=== PATIENT | male | born 1955 | race Caucasian/White ===

== ENCOUNTER 2016-09-12 12:25 | Emergency (ER) | payer MEDICARE, MEDICAID ==
[2016-09-12] MEDS ORDERED: oxyCODONE/Acetamin 5/325 MG* TAB PO ONE ×2 (16:03→19:27)
--- NOTE | 2016-09-12 16:26 | ED ---
Skin Complaint - HPI Summary HPI Summary: Patient presents to ED with CC of pain and potential abscess at back of head x 1 week. He has been using ibuprofen, ice, heating pads and marijuana for relief. Denies [place]. He is unsure if the area has been draining and patient has never had this before. Patient is unable flex and extend at the neck and rates a 10/10 pain upon movement of the head. Denies IV drug use or recent abx use. Patient is otherwise healthy. He states several days ago the raised lump was more "moveable" and larger, today is much smaller but the pain continues. - History of Current Complaint Chief Complaint: EDRashSkinAbscess Time Seen by Provider: 09/12/16 15:41 Stated Complaint: PAINFUL BUMP ON BACK OF HEAD Hx Obtained From: Patient Onset/Duration: Started Days Ago Skin Exposure Onset/Duration: Hours Ago Timing: Constant Onset Severity: Severe Current Severity: Severe Pain Intensity: 10 Pain Scale Used: 0-10 Numeric Skin Location: Other: - head Character: Swelling, Pain, Redness, Raised, Painful Aggravating Symptom(s): Touch Alleviating Symptom(s): Heat, Cold, Cold Compresses Associated Signs & Symptoms: Drainage, Tenderness - Allergy/Home Medications Allergies/Adverse Reactions: Allergies Allergy/AdvReac Type Severity Reaction Status Date / Time Penicillins Allergy Rash Verified 09/12/16 12:38 PMH/Surg Hx/FS Hx/Imm Hx Previously Healthy: Yes Cardiovascular History: Denies: Other Cardiovascular Problems/Disorders Respiratory History: Reports: Hx Asthma Infectious Disease History: No Infectious Disease History: Denies: Traveled Outside the [place] in Last 30 Days - Social History Occupation: Employed Full-time Lives: With Family Alcohol Use: None Hx Substance Use: Yes Substance Use Type: Reports: Marijuana Hx Tobacco Use: Yes Smoking Status (MU): Former Smoker Review of Systems Constitutional: Negative Eyes: Negative Respiratory: Negative Positive: no symptoms reported, see HPI Positive: Arthralgia - neck pain on flexion and extension Positive: Other - pain in posterior scalp with raised lesion Neurological: Negative Psychological: Normal All Other Systems Reviewed And Are Negative: Yes Physical Exam Triage Information Reviewed: Yes Vital Signs On Initial Exam: Initial Vitals Temp Pulse Resp BP Pulse Ox 98.0 F 81 18 156/76 98 09/12/16 12:38 09/12/16 12:38 09/12/16 12:38 09/12/16 12:38 09/12/16 12:38 Vital Signs Reviewed: Yes Appearance: Positive: Well-Appearing, Well-Nourished, Pain Distress Skin: Positive: Warm, Other - pain on palpation over posterior scalp. raised 2cm raised bump which is not fluctuant. no surrounding erythma. center with small scab indicating prior drainage. Eyes: Positive: EOMI, LEOPOLDO, Conjunctiva Clear Neck: Positive: Supple, No Lymphadenopathy Respiratory/Lung Sounds: Positive: Clear to Auscultation, Breath Sounds Present Cardiovascular: Positive: Normal Musculoskeletal: Positive: Normal - pain with flexion and extension of the neck d/t abscess on posterior scalp Neurological: Positive: Sensory/Motor Intact, Alert, Oriented to Person Place, Time, Speech Normal Psychiatric: Positive: Normal AVPU Assessment: Alert Diagnostics - Vital Signs Vital Signs Temp Pulse Resp BP Pulse Ox 09/12/16 13:56 98.2 F 82 18 136/75 100 09/12/16 12:38 98.0 F 81 18 156/76 98 - Laboratory Result Diagrams: 09/12/16 18:00 09/12/16 18:00 Lab Statement: Any lab studies that have been ordered have been reviewed, and results considered in the medical decision making process. - CT No standard instances CT Interpretation: Positive (See Comments) CT Interpretation Completed By: Radiologist - IMPRESSION: THERE APPEARS TO BE AN AREA OF INDURATED FAT IN THE DORSAL SOFT TISSUES JUST SUPERFICIAL TO THE OCCIPITAL BONE LIKELY REPRESENTING CELLULITIS. NO EVIDENCE OF DRAINABLE FLUID COLLECTION IS NOTED. MULTIPLE SUPRACLAVICULAR AND LEVEL 2 LYMPH NODES ARE NOTED. THE LARGEST IN THE LEFT SUPRACLAVICULAR SPACE MEASURING UP TO 10 MM. RIGHT SUPRACLAVICULAR SPACE LYMPH NODE MEASURES UP TO 9 MM. Course/Dx - Course Course Of Treatment: 10mg percoset given for pain so as able to reassess. Non- fluctuant slightly raised mass over posterior scalp present for 7 days with worsening pain. Center with small scab indicating previous drainage. pain 10/ 10. 10mg oxycodone given for pain. Unable to flex or extend neck d/t pain. Patient allergic to pencillins. Patient given morphine for pain on second assessment. CTA neck ordered showing indurated fat and cellulitis with no drainable fluid collection. Patient made aware of results and agrees to follow up with Dr. Alas this week. White count at 13. - Differential Diagnoses - Skin Complaint Differential Diagnoses: Cellulitis, Other - folliculitis, abscess, enlarged lymphnodes, indurated fat - Diagnoses Provider Diagnoses: Cellulitis of scalp Discharge - Discharge Plan Condition: Stable Disposition: HOME Prescriptions: Clindamycin Cap(NF) [Cleocin 300 mg Cap(NF)] 300 mg PO Q6H #28 cap MDD 4 Hydrocodone/Acetamin 10/325(NF [[place] 10/325 (NF)] 1 tab PO Q6H #12 tab MDD 4 Patient Education Materials: Cellulitis (ED) Referrals: Marnie Alas MD [Primary Care Provider] - Additional Instructions: Follow up with Dr. Alas on Tuesday regarding cellulitic infection and high blood glucose level. Warm compresses to the area 2-3 times daily. Warm soaks with soap and water at least once daily for 15 minutes. Take antibiotics as prescribed. Take all antibiotics even if you are feeling better. Ibuprofen 600mg three times daily with meals for pain and inflammation x 5 days. If pain is not well controlled on ibuprofen, you may take the pain medication up to 4 times daily. Dispense any unused pain medication at your pharmacy. Images - Images Head: 1 - 2cm non-fluctuant raised lump with scab evidence of prior drainage. no surrounding erythema.
[2016-09-12 18:07] LABS: Hematocrit 43 % (42-52); Mean Corpuscular HGB Conc 33 g/dl (31-36); Mean Corpuscular Hemoglobin 29 pg (27-31); Mean Corpuscular Volume 88 fL (80-94); Mean Platelet Volume 9 um3 (7.4-10.4); Red Cell Distribution Width 15 % (10.5-15); White Blood Count 13.3 10^3/ul (3.5-10.8)
[2016-09-12 18:22] LABS: Albumin 3.7 g/dL (3.2-5.2); BUN/Creatinine Ratio 16.7 (8-20); Calcium 8.9 mg/dL (8.6-10.3); Globulin 3.7 g/dL (2-4); Potassium 3.6 mmol/L (3.5-5.0); Total Bilirubin 0.2 mg/dL (0.2-1.0); Total Protein 7.4 g/dL (6.4-8.9)
[2016-09-12] MEDS ORDERED: Iodixanol* (CONTRAST) 320 MG/ML 100 ML SDV IV ONE (18:32)
[2016-09-12] MEDS ORDERED: Morphine INJ* 2 MG/ML 1 ML CARPUJECT IV ONE (19:28)
--- NOTE | 2016-09-12 19:36 | RAD ---
Indication: 4 x 4 centimeter mass over posterior scalp. Contrast: Administered 99.9 ml of VISAPAQUE 320 mgi/ml CT of the soft tissues of the neck was performed after IV contrast administration. Coronal and sagittal reconstructed images were obtained. Superficial to the occipital bone adjacent to the posterior fossa there is erythema and infiltration of fat in the subcutaneous soft tissues. This measures approximately 5 x 4 cm. No drainable fluid collections are noted. This likely represents an area of cellulitis. The paraspinal muscles are otherwise unremarkable. No evidence of bony erosion is noted. No intracranial extension is noted. The parotid glands are unremarkable. Submandibular glands are unremarkable. There are scattered lymph nodes in the supraclavicular space. They measure approximately 11 mm on the left and 10 mm on the right. Level 2 lymph nodes are noted measuring 6 mm on the left. No prevertebral soft tissue swelling is noted. Mucosal thickening of the left maxillary sinus is noted. IMPRESSION: THERE APPEARS TO BE AN AREA OF INDURATED FAT IN THE DORSAL SOFT TISSUES JUST SUPERFICIAL TO THE OCCIPITAL BONE LIKELY REPRESENTING CELLULITIS. NO EVIDENCE OF DRAINABLE FLUID COLLECTION IS NOTED. MULTIPLE SUPRACLAVICULAR AND LEVEL 2 LYMPH NODES ARE NOTED. THE LARGEST IN THE LEFT SUPRACLAVICULAR SPACE MEASURING UP TO 10 MM. RIGHT SUPRACLAVICULAR SPACE LYMPH NODE MEASURES UP TO 9 MM.
[2016-09-12] MEDS ORDERED: Clindamycin CAP* 150 MG PO ONE ×2 (19:45→19:46)
[2016-09-12] MEDS ORDERED: HYDROcodone/ACETAMIN 5-325 MG* 1 TAB PO ONE (19:47)
[2016-09-12 20:26] VITALS: BP 164/94
== END 2016-09-12 20:21 | disposition home or self-care (01) ==
LOC: ED 12:25
DX: L03.811 Cellulitis of head [any part, except face] (principal); M54.2 Cervicalgia; Z87.891 Personal history of nicotine dependence
CPT/HCPCS: 36415; 70491; 80053; 85025; 96374; 99282; A9270-GY; J2270; Q9967

== ENCOUNTER 2017-10-07 20:01 | Inpatient (IN) | payer MEDICARE, MEDICAID ==
[~2017-10-07 20:01] MED LIST: EPINEPHRINE 1 MG/ML 1 ML VIAL ONE; KETAMINE HCL* 50 MG/ML 10 ML VIAL ONE; Succinylcholine* 20 MG/ML 10 ML VIAL ONE
[2017-10-07] MEDS ORDERED: VECURONIUM BROMIDE 10 MG INJ ONE (20:09)
[2017-10-07] MEDS ORDERED: VECURONIUM BROMIDE 10 MG INJ IV ONE (20:10)
[2017-10-07] MEDS ORDERED: EPINEPHRINE 1 MG/ML 1 ML VIAL ONE (20:11)
[2017-10-07] MEDS ORDERED: KETAMINE HCL* 50 MG/ML 10 ML VIAL IV ONE (20:14)
[2017-10-07] MEDS ORDERED: EPINEPHrine AMP 1 MG/ML SUBCUT ONE (20:14)
[2017-10-07] MEDS ORDERED: Succinylcholine* 20 MG/ML 10 ML VIAL IV ONE (20:14)
[2017-10-07] MEDS ORDERED: methylPREDNISolone 125 MG* 2 ML VIAL IV ONE (20:20)
[2017-10-07] MEDS ORDERED: Magnesium Sulfate 2 GM IV* 2 GM/50 ML BAG IVPB ONE (20:20)
[2017-10-07] MEDS ORDERED: Albuterol/Ipratropium NEB.SOL* Albuterol 2.5 MG/Ipratropium 0.5 MG 3 ML INH ONE (20:20)
[2017-10-07] MEDS ORDERED: NS 0.9% 1000 ML* 1,000 ML IV ONE (20:20)
[2017-10-07 20:31] LABS: Hematocrit 37 % (42-52); Hemoglobin 11.9 g/dl (14.0-18.0); Mean Corpuscular HGB Conc 32 g/dl (31-36); Mean Corpuscular Hemoglobin 30 pg (27-31); Mean Corpuscular Volume 94 fL (80-94); Mean Platelet Volume 8.2 um3 (7.4-10.4); Platelet Count 283 10^3/ul (150-450); Red Blood Count 3.92 10^6/ul (4.0-5.4); Red Cell Distribution Width 14 % (10.5-15); White Blood Count 12.8 10^3/ul (3.5-10.8)
--- NOTE | 2017-10-07 20:37 | RAD ---
INDICATION: Intubation. Respiratory distress COMPARISON: August 19, 2014 TECHNIQUE: An AP portable view obtained at 2009 hours is submitted. FINDINGS: Bones/Soft Tissues: There are no acute bony findings. There is nasogastric tube in the stomach there is an endotracheal tube at the level of the thoracic inlet at the T1 level. The endotracheal tube is approximately 10 cm above the ebenezer Cardiomediastinal: The cardiomediastinal silhouette is normal. Lungs: There are no infiltrates. There is mild hyperinflation. There are no focal infiltrates Pleura: There are no pleural effusions. Other: None IMPRESSION: THE ENDOTRACHEAL TUBE IS AT THE LEVEL OF THE THORACIC INLET AND CAN BE ADVANCED. LUNGS CLEAR.
[2017-10-07 20:43] LABS: EGFR Non-African American 52.6 (>60)
[2017-10-07] MEDS ORDERED: Vecuronium Bromide* 10 MG in NS 0.9% 100 ML* 100 ML IV SCH (21:00)
[2017-10-07] MEDS ORDERED: Propofol* 500 MG/50 ML BTL IV SCH (21:00)
[2017-10-07 21:28] LABS: Monocytes % 8 % (0-7)
[2017-10-07] MEDS ORDERED: Dextrose 50% Syringe 50 ML* 25 GM/50 ML SYRINGE IV PUSH PRN (21:40)
[2017-10-07] MEDS ORDERED: cefTRIAXone(*) 1 GM in NS 0.9% 50 ML* 50 ML IVPB SCH (21:45)
[2017-10-07 21:53] LABS: Urine Appearance Cloudy; Urine Blood Negative (Negative); Urine Color Yellow; Urine Ketones Negative (Negative); Urine Protein 3+(>=500 mg/dL) (Negative); Urine Specific Gravity 1.017 (1.010-1.030); Urine Urobilinogen Negative (Negative)
--- NOTE | 2017-10-07 22:04 | ED ---
Michelle Salamanca Julia, scribed for Travis Peña MD on 10/07/17 at 2052 . Respiratory - HPI Summary HPI Summary: This patient is a 62 year old M BIBA to [facility] due to severe respiratory distress. EMS report a hx of asthma and DM. They are unaware of any other medical history. EMS states pt was unresponsive on arrival. Pt is unable to provide a hx. Pt is level 5 caveat. - History of Current Complaint Chief Complaint: EDRespiratoryDistress Stated Complaint: RESP DISTRESS Time Seen by Provider: 10/07/17 20:12 Hx Obtained From: EMS Hx From Patient Unobtainable Due To: Extremis Pain Intensity: 0 Related History: Similar Episode/Dx as - asthma - Allergy/Home Medications Allergies/Adverse Reactions: Allergies Allergy/AdvReac Type Severity Reaction Status Date / Time Penicillins Allergy Rash Verified 10/07/17 20:14 Home Medications: Home Medications Albuterol HFA INHALER* [Ventolin HFA Inhaler*] 2 puff PO Q4H PRN 10/07/17 [ History Confirmed 10/07/17] Fluticasone-Salmeterol 250-50* [Advair Diskus 250-50*] 1 puff INH BID 10/07/17 [ History Confirmed 10/07/17] Glimepiride (NF) 2 mg PO QAM 10/07/17 [History Confirmed 10/07/17] Sitaglip/Metform XR50/1000(NR) [Janumet Xr (NR)] 1 tab PO BID 10/07/17 [ History Confirmed 10/07/17] PMH/Surg Hx/FS Hx/Imm Hx Endocrine/Hematology History: Reports: Hx Diabetes Cardiovascular History: Denies: Hx Hypertension, Other Cardiovascular Problems/Disorders Respiratory History: Reports: Hx Asthma Infectious Disease History: No Infectious Disease History: Denies: Traveled Outside the [place] in Last 30 Days - Family History Known Family History: Positive: Unknown - Pt is unable to provide hx. Level 5 caveat - Social History Alcohol Use: None Hx Substance Use: Yes Substance Use Type: Reports: Marijuana Hx Tobacco Use: Yes Smoking Status (MU): Former Smoker Review of Systems All Other Systems Reviewed And Are Negative: No - Comments Additional Review of Systems Comments: ROS is limited. Pt is level 5 caveat. Physical Exam - Summary Physical Exam Summary: Appearance: sever respiratory distress Skin: warm, reflects adequate perfusion, diaphoretic Head/face: normal Eyes: EOMI, LEOPOLDO ENT: normal Neck: supple, non-tender Respiratory: diminished breath sounds with wheezes Cardiovascular: RRR, pulses symmetrical Abdomen:, soft Bowel Sounds: present Musculoskeletal: normal, no lower extremity edema Neuro: AMS Triage Information Reviewed: Yes Vital Signs On Initial Exam: Initial Vitals Temp Pulse Resp BP Pulse Ox 97.6 F 127 24 142/86 96 10/07/17 20:32 10/07/17 20:32 10/07/17 20:32 10/07/17 20:32 10/07/17 20:32 Vital Signs Reviewed: Yes Procedures - Procedure Summary Procedure Summary: Pt was intubated with a 3 glide scope with 8-0 ET tube, 20cm at the lip. Sa02 was over 95% throughout entire intubation process. Bilateral breath sounds present. Pt had good color. Orogastric tube was additionally placed. Diagnostics - Vital Signs Vital Signs Temp Pulse Resp BP Pulse Ox 10/07/17 20:36 124 10 97 10/07/17 20:32 97.6 F 127 24 142/86 96 - Laboratory Lab Results: Lab Results 10/07/17 10/07/17 10/07/17 Range/Units 20:05 20:05 20:05 WBC 12.8 H (3.5-10.8) 10^3/ul RBC 3.92 L (4.0-5.4) 10^6/ul Hgb 11.9 L (14.0-18.0) g/dl Hct 37 L (42-52) % MCV 94 (80-94) fL MCH 30 (27-31) pg MCHC 32 (31-36) g/dl RDW 14 (10.5-15) % Plt Count 283 (150-450) 10^3/ul MPV 8.2 (7.4-10.4) um3 Neut % (Auto) Pending Lymph % (Auto) Pending [place] % (Auto) Pending Eos % (Auto) Pending Baso % (Auto) Pending Absolute Neuts (auto) Pending Absolute Lymphs (auto) Pending Absolute Monos (auto) Pending Absolute Eos (auto) Pending Absolute Basos (auto) Pending Absolute Nucleated RBC Pending Nucleated RBC % Pending Patient Temperature ABG pH (7.35-7.45) ABG pH (Temp Correct) ABG pCO2 (35-45) mmHg ABG pCO2 (Temp Corrct ABG pO2 (80-100) mmHg ABG pO2 (Temp Correct ABG HCO3 (19-31) mmol/L ABG O2 Saturation (95-98) % ABG Base Excess (-2.0-2.0) Respiration Rate O2 Delivery Device Ventilator Type Vent Mode FiO2 Inspiratory Time PEEP Pressure Support Pressure Control EPAP IPAP BiPAP Sodium 139 (139-145) mmol/L Potassium 4.2 (3.5-5.0) mmol/L Chloride 103 (101-111) mmol/L Carbon Dioxide 19 L (22-32) mmol/L Anion Gap 17 H (2-11) mmol/L BUN 16 (6-24) mg/dL Creatinine 1.38 H (0.67-1.17) mg/dL Est GFR ( Amer) 67.6 (>60) Est GFR (Non-Af Amer) 52.6 (>60) BUN/Creatinine Ratio 11.6 (8-20) Glucose 220 H (70-100) mg/dL Lactic Acid 8.5 H* (0.5-2.0) mmol/L Calcium 9.4 (8.6-10.3) mg/dL Total Bilirubin 0.40 (0.2-1.0) mg/dL AST 70 H (13-39) U/L ALT 59 H (7-52) U/L Alkaline Phosphatase 62 (34-104) U/L Troponin I 0.03 (<0.04) ng/mL C-Reactive Protein 11.62 H (< 5.00) mg/L Total Protein 7.9 (6.4-8.9) g/dL Albumin 4.3 (3.2-5.2) g/dL Globulin 3.6 (2-4) g/dL Albumin/Globulin Ratio 1.2 (1-3) /12/19 Range/Units 20:20 WBC (3.5-10.8) 10^3/ul RBC (4.0-5.4) 10^6/ul Hgb (14.0-18.0) g/dl Hct (42-52) % MCV (80-94) fL MCH (27-31) pg MCHC (31-36) g/dl RDW (10.5-15) % Plt Count (150-450) 10^3/ul MPV (7.4-10.4) um3 Neut % (Auto) Lymph % (Auto) [place] % (Auto) Eos % (Auto) Baso % (Auto) Absolute Neuts (auto) Absolute Lymphs (auto) Absolute Monos (auto) Absolute Eos (auto) Absolute Basos (auto) Absolute Nucleated RBC Nucleated RBC % Patient Temperature Not Reportable ABG pH 7.06 L* (7.35-7.45) ABG pH (Temp Correct) Not Reportable ABG pCO2 72 H* (35-45) mmHg ABG pCO2 (Temp Corrct Not Reportable ABG pO2 374 H (80-100) mmHg ABG pO2 (Temp Correct Not Reportable ABG HCO3 16.2 L (19-31) mmol/L ABG O2 Saturation 100.6 H (95-98) % ABG Base Excess -11.2 L (-2.0-2.0) Respiration Rate 10 O2 Delivery Device vent Ventilator Type Not Reportable Vent Mode pcv FiO2 100 Inspiratory Time .85 PEEP 8 Pressure Support Not Reportable Pressure Control 15 EPAP Not Reportable IPAP Not Reportable BiPAP Not Reportable Sodium (139-145) mmol/L Potassium (3.5-5.0) mmol/L Chloride (101-111) mmol/L Carbon Dioxide (22-32) mmol/L Anion Gap (2-11) mmol/L BUN (6-24) mg/dL Creatinine (0.67-1.17) mg/dL Est GFR ( Amer) (>60) Est GFR (Non-Af Amer) (>60) BUN/Creatinine Ratio (8-20) Glucose (70-100) mg/dL Lactic Acid (0.5-2.0) mmol/L Calcium (8.6-10.3) mg/dL Total Bilirubin (0.2-1.0) mg/dL AST (13-39) U/L ALT (7-52) U/L Alkaline Phosphatase (34-104) U/L Troponin I (<0.04) ng/mL C-Reactive Protein (< 5.00) mg/L Total Protein (6.4-8.9) g/dL Albumin (3.2-5.2) g/dL Globulin (2-4) g/dL Albumin/Globulin Ratio (1-3) Result Diagrams: 10/07/17 20:05 10/07/17 20:05 Lab Statement: Any lab studies that have been ordered have been reviewed, and results considered in the medical decision making process. - Radiology CXR Radiology Interpretation Completed By: Radiologist - THE ENDOTRACHEAL TUBE IS AT THE LEVEL OF THE THORACIC INLET AND CAN BE ADVANCED. LUNGS CLEAR. ED Physician has reviewed this report. - EKG 2041 Cardiac Rate: Tachycardia - at 124 BPM EKG Rhythm: Sinus Tachycardia ST Segment: Normal Ectopy: PVCs EKG Interpretation: R axis, poor r wave progression Re-Evaluation - Re-Evaluation First Eval Change: Improved - improving tidal volumes on vent with Peak pressures of 27. Disposition - Course Course Of Treatment: Pt presents critically ill with apparent resp failure from severe asthma. Moving min air, gasping "help me." SubCut epi on arrival, prepped for intubation on arrival as he is pushing mask off face. Induced with ketamine for bronchodilatory effects. Intubated on 1st pass easily. Significantly acidotic with Co2 retention. mult nebs and IV magnesium given. Fluid hydrated. Vecuronium after intubation and vec drip started to help with synchronization of the ventilator. ICU physician consulted immediately after intubation. He will discuss further vent managment with the hospitalist team. Sedated with propofol and a 2nd bolus of ketamine 100mg. To ICU. BPs up, sats well with tx. Mechanical decompression of chest several times to assist with hyperinflation. ETT was advanced after seeing high on the CXR. - Differential Dx - Cardiopulmonary Differential Diagnoses - Cardiopulmonary: Acute Coronary, Airway Obstruction, CHF, Exacerbation Of COPD, Pneumothorax - Diagnoses Provider Diagnoses: Respiratory failure, Asthma exacerbation, Hyperglycemia - Critical Care Time Critical Care Time: 30-74 min - Critical care time is exclusive of separately billable procedures Discharge - Sign-Out/Discharge Documenting (check all that apply): Discharge - Discharge Plan Condition: Critical Disposition: ADMITTED TO [facility] - Billing Disposition and Condition Condition: CRITICAL Disposition: [facility] Consult Consult: At 17:56, Dr. Manjarrez recommends to admit by hospitalist. At 20:48, Dr. Harrison, hospitalist, agrees to admit pt The documentation as recorded by the scribe, Roetzer,Jocelyne accurately reflects the service I personally performed and the decisions made by me, Travis Peña MD.
[2017-10-07] MEDS ORDERED: NS 0.9% 1000 ML* 1,000 ML IV SCH (22:15)
[2017-10-07] MEDS ORDERED: Propofol* 100 ML ONE (22:30)
[2017-10-07] MEDS: Albuterol 2.5 MG/3 ML NEB.SOL* (0.083%) INH PRN (22:57)
[2017-10-07] MEDS: methylPREDNISolone 125 MG* 2 ML VIAL IV SCH (23:18)
[2017-10-07] MEDS: cefTRIAXone 1000 MG SYRINGE IVPB Q24H (in NaCl) IVPB SCH ×2 (23:24)
[2017-10-07] MEDS: Azithromycin IV(*) 250 MG in NS 0.9% 250 ML* 250 ML IVPB SCH (23:44)
[2017-10-07] MEDS: Insulin LISPRO* 1 UNITS UNIT SUBCUT SCH (23:49)
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
[2017-10-08] MEDS: NS 0.9% 1000 ML* 2,000 ML IV ONE ×2 (00:49→01:50)
[2017-10-08] MEDS ORDERED: Metoprolol Tartrate IV* 1 MG/ML 5 ML VIAL IV PRN (00:53)
[2017-10-08] MEDS ORDERED: Propofol* 100 ML ONE (01:16)
[2017-10-08] MEDS: Propofol* 100 ML IV SCH ×8 (01:26→23:10)
[2017-10-08] MEDS: Aspirin 81 mg CHEW TAB* 81 MG TAB.CHEW G TUBE SCH ×2 (01:51→09:11)
[2017-10-08] MEDS: Vecuronium Bromide* 10 MG in NS 0.9% 100 ML* 100 ML IV SCH ×7 (01:52→13:09)
[2017-10-08] MEDS: Albuterol 2.5 MG/3 ML NEB.SOL* (0.083%) INH SCH ×12 (03:40→23:21)
[2017-10-08] MEDS: Insulin LISPRO* 1 UNITS UNIT SUBCUT SCH ×5 (04:18→20:35)
[2017-10-08 05:04] LABS: ABS Basophils 0 10^3/ul (0-0.2); ABS Eosinophils 0 10^3/ul (0-0.6); ABS Monocytes 0.4 10^3/ul (0-0.8); ABS Nucleated RBC 0 10^3/ul; Eosinophil % 0.1 % (0-6); Hematocrit 41 % (42-52); Hemoglobin 13.1 g/dl (14.0-18.0); Lymphocyte % 8.2 % (25-47); Mean Corpuscular HGB Conc 32 g/dl (31-36); Mean Corpuscular Hemoglobin 30 pg (27-31); Mean Corpuscular Volume 95 fL (80-94); Mean Platelet Volume 8.3 um3 (7.4-10.4); Nucleated Red Blood Cells % 0; Platelet Count 249 10^3/ul (150-450); Red Blood Count 4.31 10^6/ul (4.0-5.4); Red Cell Distribution Width 15 % (10.5-15); White Blood Count 12.4 10^3/ul (3.5-10.8)
[2017-10-08 05:14] LABS: EGFR Non-African American 43.1 (>60)
[2017-10-08] MEDS ORDERED: NS 0.9% 500 ML* 500 ML IV ONE (05:36)
[2017-10-08] MEDS ORDERED: NS 0.9% 1000 ML* 1,000 ML IV SCH (05:37)
[2017-10-08] MEDS: methylPREDNISolone 125 MG* 2 ML VIAL IV SCH ×3 (09:12→21:43)
[2017-10-08] MEDS: fentaNYL* 50 MCG/ML 2 ML VIAL (100 MCG VIAL) IV SLOW PU PRN ×2 (10:13→16:48)
[2017-10-08] MEDS ORDERED: Famotidine SUSP* 40 MG/5 ML ORAL.SYRIN G TUBE ONE (11:27)
--- NOTE | 2017-10-08 11:42 | PN ---
Progress Note - Progress Note Date of Service: 10/08/17 Note: CRITICAL CARE MEDICINE Date: 10/08/17 Time: 1055 SUBJECTIVE: Patient seen and examined. GF of 9 years at bedside. 4 kids not emancipated. She states he was unwell last few days but even before was having cohen. using neb at home but not much help last 2 days. occasional etoh, tlc no tob. PHYSICAL EXAM: Vital Signs: Reviewed. Neurologic: sedated RASS -3. HEENT: pupils equal. Sclera anicteric. Trachea midline. ett high. advanced to 24cm lip. Cardiovascular: distant S1 S2 Respiratory: barrel chest with poor air movement and tight end exp wheeze diffusely but not loud Abdomen: Soft, obese, nt. Extremities: Warm. Access: piv LABS: Reviewed. IMAGING: Reviewed. MEDICATIONS: Reviewed. ASSESSMENT: 62 M Status asthmaticus Acute hypoxic and hypercarbic resp failure Uncontrolled DM Demand ischemia with troponin leak MIRIAN Mild transaminitis from hypoperfusion Lactic acidosis from resp mechanics and global hypoperfusion PLAN: Neurologic: keep sedated with prop. use fent prn. Cardiovascular: perfusing. bp low end at times but tolerable. needs IVF to equilibrate post Ebb phase. can dc later today. troponin sec to demand, but with risk factors. check echo. pe seems less likely but with echo can check duplexs as well. Respiratory: actually not looking too bad on vent. adjusted to cpap and tolerating with large vol and desired peep, pressure adjusted. needs further nebs as still not even releasing through extensive wheezes I think. on iv steroids. nebs q1 for a bit today and then can back down again. as long as avoiding autopeep and airtrapping, we can maintain on cpap with larger volumes to avoid paralytics. f/u abg later today to see gas exchange. Gastrointestinal: ogt. start tf. sup. Renal/Metabolic: LA cleared. fluids off later. allow renal recovery post hypoperfusion. Infectious Disease: doubt bacterial infection, but can keep abx while cx pending. if neg, can just use azithro for copd adjunction. Hematology: hb ok. hsq. Endocrine: on steroids. glu uncontrolled with this. ssi and add lantus today. Musculoskeletal: bedrest. skin precautions. Psych/Social: gf updated. Supportive and preventative care as ordered. SUP: h2 VTE prophylaxis: heparin Siddiqui catheter given critical illness, monitoring needs for accurate assessment of MIRIAN and KDIGO criteria for critically ill patients and to avoid potential harms of urinary retention, skin breakdown/ulcers. Disposition: ICU Code Status: Full Critical Care Time: 45min Erica Manjarrez DO
[2017-10-08] MEDS: Chlorhexidine MOUTHWASH 0.12%* 15 ML UDC TOPICAL SCH ×3 (11:56→20:17)
[2017-10-08] MEDS ORDERED: Insulin GLARGINE(*) 1 UNITS UNIT SUBCUT ONE (12:00)
[2017-10-08] MEDS: cefTRIAXone 1000 MG SYRINGE IVPB Q24H (in NaCl) IVPB SCH ×2 (21:43)
[2017-10-08] MEDS: Azithromycin IV(*) 250 MG in NS 0.9% 250 ML* 250 ML IVPB SCH (22:15)
[2017-10-09] MEDS: Chlorhexidine MOUTHWASH 0.12%* 15 ML UDC TOPICAL SCH ×6 (00:13→19:56)
[2017-10-09] MEDS: fentaNYL* 50 MCG/ML 2 ML VIAL (100 MCG VIAL) IV SLOW PU PRN ×5 (00:13→19:56)
[2017-10-09] MEDS: Insulin LISPRO* 1 UNITS UNIT SUBCUT SCH ×6 (00:21→20:25)
[2017-10-09] MEDS: Propofol* 100 ML IV SCH ×9 (02:10→23:22)
[2017-10-09] MEDS: Albuterol 2.5 MG/3 ML NEB.SOL* (0.083%) INH SCH ×6 (03:49→23:10)
[2017-10-09] MEDS: methylPREDNISolone 125 MG* 2 ML VIAL IV SCH ×3 (05:45→22:05)
[2017-10-09 05:52] LABS: ABS Basophils 0 10^3/ul (0-0.2); ABS Eosinophils 0 10^3/ul (0-0.6); ABS Monocytes 1.2 10^3/ul (0-0.8); ABS Neutrophils 16.5 10^3/ul (1.5-7.7); ABS Nucleated RBC 0 10^3/ul; Eosinophil % 0.1 % (0-6); Hematocrit 38 % (42-52); Hemoglobin 12.2 g/dl (14.0-18.0); Lymphocyte % 5.3 % (25-47); Mean Corpuscular HGB Conc 33 g/dl (31-36); Mean Corpuscular Hemoglobin 30 pg (27-31); Mean Corpuscular Volume 92 fL (80-94); Mean Platelet Volume 8.9 um3 (7.4-10.4); Nucleated Red Blood Cells % 0; Platelet Count 248 10^3/ul (150-450); Red Blood Count 4.08 10^6/ul (4.0-5.4); Red Cell Distribution Width 15 % (10.5-15); White Blood Count 18.7 10^3/ul (3.5-10.8)
[2017-10-09 06:15] LABS: EGFR Non-African American 54.8 (>60)
[2017-10-09] MEDS: Aspirin 81 mg CHEW TAB* 81 MG TAB.CHEW G TUBE SCH (08:40)
[2017-10-09] MEDS ORDERED: Furosemide IV* 10 MG/ML VIAL (40 MG) IV SLOW PU ONE (10:48)
--- NOTE | 2017-10-09 10:59 | ECHO ---
Patient: KARINE TOVAR Rec#: [id number] : 1955 Date: 10/09/2017 Age: 62y Height: 175.3 cm / 69.0 in Weight: 93.4 kg / 205.9 lbs Sex: M BSA: 2.1 Room#: ICU 3 Admit Date#: 10/07/2017 Type: Inpatient Referring: Mikal Harrison MD Reading: Oscar Montez MD Basketball Scout: Brenda Malik RN RDCS Transthoracic Echocardiogram Indication: OK, respiratory distress BP: 103/63 HR: 82 Rhythm: NSR Findings History: Asthma, DM, former smoker. The patient is on mechanical ventilaton during the exam. Technical Comments: The study is technically limited due to patient body habitus. The study is technically limited due to the patient's smoking history. The study is technically limited due to patient being intubated and on a ventilator.Completed at 1000. Left Ventricle: The left ventricular chamber size is normal. Global left ventricular wall motion and contractility are within normal limits. There is normal left ventricular systolic function. The estimated ejection fraction is 60-65%. The assessment of diastolic function is non-diagnostic. Left Atrium: The left atrial chamber size is normal. Right Ventricle: The right ventricular chamber size and systolic function are within normal limits. Right Atrium: The right atrial cavity size is normal. Aortic Valve: The aortic valve structure is not well visualized. The aortic valve is trileaflet. The aortic valve leaflets are mildly thickened. There is no evidence of aortic regurgitation. There is no evidence of aortic stenosis. Mitral Valve: Mild mitral annular calcification present. The mitral valve leaflets are mildly thickened. There is a trace of mitral regurgitation. Tricuspid Valve: The tricuspid valve leaflets are normal. There is trace tricuspid regurgitation. Unable to estimate the right ventricular systolic pressure. There is no tricuspid stenosis. Pulmonic Valve: The pulmonic valve structure is not well visualized. There is no evidence of pulmonic regurgitation. There is no pulmonic stenosis. Pericardium: There is no significant pericardial effusion. A pericardial fat pad is visualized. Aorta: The ascending aorta is not well visualized. The aortic arch is not well visualized. There is no dilation of the aortic root. Pulmonary Artery: The main pulmonary artery is not well visualized. Venous: Unable to accurately comment on the size collapsibility of the IVC as the patient in known to be on mechanical ventilation. Conclusions There is normal left ventricular systolic function. The estimated left ventricular ejection fraction is 60-65%. Global left ventricular wall motion and contractility are within normal limits. Normal right heart size and function. Normal cardiac chamber sizes. Functionally benign heart valves. There is no prior echocardiogram available to compare with at this time. Measurements Name Value Normal Range RVDdMajor (2D) 3.1 cm (2.2 - 4.4) RAd ISD 4CH 4.2 cm (3.4 - 4.9) RA (A4C)W 3.5 cm (2.9 - 4.6) IVSd (2D) 1.2 cm (0.6 - 1) LVPWd (2D) 1 cm (0.6 - 1) LVIDd (2D) 4.3 cm (3.6 - 5.4) LVIDs (2D) 3.2 cm - LV FS (2D) 25 % (25 - 45) Aortic Annulus 2.4 cm (1.4 - 2.6) Ao root diameter (2D) 3.1 cm (2.1 - 3.5) LA dimension (AP) 2D 3.4 cm (2.3 - 3.8) LAd ISD 4CH 4.2 cm (2.9 - 5.3) LA ISD 4CH W 3.2 cm (2.5 - 4.5) Name Value Normal Range LA ESV SP 4CH (A/L) 28 ml - LA ESV SP 2CH (A/L) 37 ml - LA ESV BP (A/L) 36 ml - LA ESV BP (A/L) index 17.2 ml/m2 - LA ESV SP 4CH (MOD) 27 ml - LA ESV SP 2CH (MOD) 35 ml - Name Value Normal Range MV E-wave Vmax 0.76 m/sec - MV deceleration time 170 msec - MV A-wave Vmax 0.69 m/sec - MV E:A ratio 1.1 ratio - LV septal e' Vmax 0.1 m/sec - LV lateral e' Vmax 0.09 m/sec - LV E:e' septal ratio 7.6 ratio - LV E:e' lateral ratio 8.4 ratio - Name Value Normal Range AV Vmax 1.2 m/sec - AV VTI 22.5 cm - AV peak gradient 6.1 mmHg - AV mean gradient 3.6 mmHg - LVOT Vmax 1.2 m/sec - LVOT VTI 20.6 cm - LVOT peak gradient 5.5 mmHg - LVOT mean gradient 2.9 mmHg - Name Value Normal Range PV Vmax 0.73 m/sec -
--- NOTE | 2017-10-09 11:09 | PN ---
Progress Note - Progress Note Date of Service: 10/09/17 Note: CRITICAL CARE MEDICINE Date: 10/09/17 Time: 1000 SUBJECTIVE: Patient seen and examined. GF present. PHYSICAL EXAM: Vital Signs: Reviewed. Neurologic: sedated RASS -2. HEENT: pupils equal. Sclera anicteric. Trachea midline. Cardiovascular: distant S1 S2 Respiratory: barrel chest with better air movement. distant rhonchi. Abdomen: Soft, obese, nt. Extremities: Warm. Access: piv LABS: Reviewed. IMAGING: Reviewed. MEDICATIONS: Reviewed. ASSESSMENT: 62 M Status asthmaticus Acute hypoxic and hypercarbic resp failure Uncontrolled DM Demand ischemia with troponin leak MIRIAN Mild transaminitis from hypoperfusion - leading to elevated ammonia (transiently ) Lactic acidosis from resp mechanics and global hypoperfusion PLAN: Neurologic: sedation holiday for nursing today and able to follow commands. prop at lower level. Rass -2 ok. use fent prn. Cardiovascular: perfusing. bp stable. would like to see him mobilize fluid. lasix today. Respiratory: looking better but mv high and still prefers high cpap otherwise high neg insp pressures, but that's at least good for mechanics but worries me for his exacerbation. May get close to liberation to HFO@ today, but given overall washout still from initial presentation may error on conservation and slow down and more proper liberation trial tomorrow post 48h steroids. Gastrointestinal: ogt. continued tf. sup. can use lactulose to aid amm clearance but should fall on its own too. Renal/Metabolic: bun up post steroids and acidosis was slow clearing but better. Infectious Disease: no signs bacterial infection; change to azithro alone. Hematology: hb ok. hsq. Endocrine: steroids continued . inc lantus today. ssi Musculoskeletal: bedrest. skin precautions. Psych/Social: gf updated. Supportive and preventative care as ordered. SUP: h2 VTE prophylaxis: heparin Siddiqui catheter given critical illness, monitoring needs for accurate assessment of MIRIAN and KDIGO criteria for critically ill patients and to avoid potential harms of urinary retention, skin breakdown/ulcers. Disposition: ICU Code Status: Full Critical Care Time: 35min Erica Manjarrez DO
[2017-10-09] MEDS ORDERED: Insulin GLARGINE(*) 1 UNITS UNIT SUBCUT ONE (12:00)
--- NOTE | 2017-10-09 21:33 | RAD ---
HISTORY: Prolonged immobility TECHNIQUE: Multiple transverse and longitudinal ultrasound images were obtained of the veins of the bilateral lower extremities using grayscale, color Doppler, and spectral Doppler imaging with and without compression and with augmentation. FINDINGS: VEINS: The common femoral vein, deep femoral vein, femoral vein and popliteal vein are compressible throughout their course, with normal flow on color Doppler imaging and normal response to augmentation on spectral Doppler imaging. SOFT TISSUES: Grossly normal. No large popliteal fossa cyst was identified. IMPRESSION: No sonographic evidence of deep vein thrombosis.
[2017-10-09] MEDS: Azithromycin IV(*) 250 MG in NS 0.9% 250 ML* 250 ML IVPB SCH (22:05)
[2017-10-10] MEDS: Chlorhexidine MOUTHWASH 0.12%* 15 ML UDC TOPICAL SCH ×3 (00:28→07:51)
[2017-10-10] MEDS: Insulin LISPRO* 1 UNITS UNIT SUBCUT SCH ×7 (00:52→23:54)
[2017-10-10] MEDS: Propofol* 100 ML IV SCH ×4 (01:50→09:27)
[2017-10-10] MEDS: Albuterol 2.5 MG/3 ML NEB.SOL* (0.083%) INH SCH ×3 (03:12→15:47)
[2017-10-10] MEDS: Heparin VIAL(*) 5000 UNITS/ML VIAL (FIVE THOUSAND) SUBCUT SCH ×3 (06:01→21:59)
[2017-10-10] MEDS: methylPREDNISolone 125 MG* 2 ML VIAL IV SCH ×3 (06:01→22:00)
[2017-10-10] MEDS: Aspirin 81 mg CHEW TAB* 81 MG TAB.CHEW G TUBE SCH (08:52)
[2017-10-10] MEDS ORDERED: Pantoprazole IV* 40 MG IV SCH (09:00)
[2017-10-10] MEDS: fentaNYL* 50 MCG/ML 2 ML VIAL (100 MCG VIAL) IV SLOW PU PRN (09:04)
[2017-10-10] MEDS ORDERED: LORazepam INJ* 2 MG/ML 1 ML VIAL IV PUSH PRN (09:59)
[2017-10-10] MEDS: Albuterol 2.5 MG/3 ML NEB.SOL* (0.083%) INH PRN (10:00)
--- NOTE | 2017-10-10 10:32 | PN ---
Progress Note - Progress Note Date of Service: 10/10/17 Note: CRITICAL CARE MEDICINE Date: 10/10/17 Time: 850 SUBJECTIVE: Patient seen and examined. PHYSICAL EXAM: Vital Signs: Reviewed. mobilized fluid Neurologic: sedated RASS -2 with touch less prop - awake. follow commands. HEENT: pupils equal. Sclera anicteric. Trachea midline. Cardiovascular: distant S1 S2 Respiratory: much better air movement. no rhonchi. no wheeze. exaccerabtes with less pressure and has stacie high level cpap Abdomen: Soft, obese, nt. Extremities: Warm. Access: piv LABS: Reviewed. IMAGING: Reviewed. MEDICATIONS: Reviewed. ASSESSMENT: 62 M Status asthmaticus Acute hypoxic and hypercarbic resp failure Uncontrolled DM Demand ischemia with troponin leak MIRIAN Mild transaminitis from hypoperfusion - leading to elevated ammonia (transiently ) Lactic acidosis from resp mechanics and global hypoperfusion PLAN: Neurologic: hold prop. see about prn needs Cardiovascular: perfusing. bp stable. vol ok. Respiratory: liberation today. astma adjunctives from there. icu care Gastrointestinal: hopefully po diet later. Renal/Metabolic: bun still gonna be up post and can f/u lytes and k tomorrow. jeffers out later. Infectious Disease: azithro po for two more days. Hematology: stable. Endocrine: steroid taper. keep same lantus today with dc feeds and dec steroids but still high glu. ssi too Musculoskeletal: progressive mobility. skin precautions. Psych/Social: gf updated. Supportive and preventative care as ordered. SUP: h2 VTE prophylaxis: heparin Disposition: ICU Code Status: Full Critical Care Time: 35min Erica Manjarrez DO
[2017-10-10] MEDS ORDERED: Insulin GLARGINE(*) 1 UNITS UNIT SUBCUT ONE (12:00)
[2017-10-10] MEDS: Azithromycin TAB* 250 MG PO SCH (19:44)
[2017-10-10] MEDS: Acetaminophen TAB* 325 MG PO PRN (20:15)
[2017-10-10] MEDS: Mometasone/Formoter 100/5 MDI INH SCH (20:20)
[2017-10-10] MEDS ORDERED: traMADol TAB* 50 MG PO ONE (21:34)
[2017-10-11] MEDS: Insulin LISPRO* 1 UNITS UNIT SUBCUT SCH ×5 (04:25→20:53)
[2017-10-11] MEDS: Heparin VIAL(*) 5000 UNITS/ML VIAL (FIVE THOUSAND) SUBCUT SCH ×3 (06:00→20:52)
[2017-10-11 06:02] LABS: EGFR Non-African American 72.8 (>60)
[2017-10-11 07:15] LABS: Hematocrit 40 % (42-52); Hemoglobin 13.3 g/dl (14.0-18.0); Mean Corpuscular HGB Conc 33 g/dl (31-36); Mean Corpuscular Hemoglobin 30 pg (27-31); Mean Corpuscular Volume 91 fL (80-94); Mean Platelet Volume 9.4 um3 (7.4-10.4); Platelet Count 257 10^3/ul (150-450); Red Blood Count 4.42 10^6/ul (4.0-5.4); Red Cell Distribution Width 15 % (10.5-15); White Blood Count 16.5 10^3/ul (3.5-10.8)
[2017-10-11 07:36] LABS: ABS Basophils 0 10^3/ul (0-0.2); ABS Eosinophils 0 10^3/ul (0-0.6); ABS Lymphocytes 1.9 10^3/ul (1.0-4.8); ABS Monocytes 0.9 10^3/ul (0-0.8); ABS Neutrophils 13.7 10^3/ul (1.5-7.7); ABS Nucleated RBC 0 10^3/ul; Eosinophil % 0 % (0-6); Lymphocyte % 11.3 % (25-47); Nucleated Red Blood Cells % 0.1
[2017-10-11] MEDS: Mometasone/Formoter 100/5 MDI INH SCH ×2 (07:41→19:35)
[2017-10-11] MEDS: predniSONE TAB* 20 MG PO SCH (07:50)
[2017-10-11] MEDS: Azithromycin TAB* 250 MG PO SCH (07:51)
[2017-10-11] MEDS: Aspirin 81 mg CHEW TAB* 81 MG TAB.CHEW G TUBE SCH (07:51)
[2017-10-11] MEDS: Acetaminophen TAB* 325 MG PO PRN (08:53)
[2017-10-11] MEDS ORDERED: traMADol TAB* 50 MG PO PRN (10:16)
[2017-10-11] MEDS: Ibuprofen TAB* 600 MG PO PRN (10:50)
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
[2017-10-11] MEDS ORDERED: Insulin GLARGINE(*) 1 UNITS UNIT SUBCUT ONE (12:00)
[2017-10-11] MEDS: Lactulose* 15 ML UDC PO SCH (20:53)
[2017-10-12 05:38] LABS: Hematocrit 40 % (42-52); Hemoglobin 13.3 g/dl (14.0-18.0); Mean Corpuscular HGB Conc 34 g/dl (31-36); Mean Corpuscular Hemoglobin 30 pg (27-31); Mean Corpuscular Volume 91 fL (80-94); Platelet Count 251 10^3/ul (150-450); Red Blood Count 4.38 10^6/ul (4.0-5.4); Red Cell Distribution Width 14 % (10.5-15); White Blood Count 12.4 10^3/ul (3.5-10.8)
[2017-10-12] MEDS: Heparin VIAL(*) 5000 UNITS/ML VIAL (FIVE THOUSAND) SUBCUT SCH (05:54)
[2017-10-12 05:56] LABS: EGFR Non-African American 64.2 (>60)
[2017-10-12] MEDS: Mometasone/Formoter 100/5 MDI INH SCH (07:43)
[2017-10-12] MEDS: Insulin LISPRO* 1 UNITS UNIT SUBCUT SCH (08:16)
[2017-10-12] MEDS: Lactulose* 15 ML UDC PO SCH (09:43)
[2017-10-12] MEDS: Ibuprofen TAB* 600 MG PO PRN (09:44)
[2017-10-12] MEDS: predniSONE TAB* 20 MG PO SCH (09:44)
[2017-10-12] MEDS: Aspirin 81 mg CHEW TAB* 81 MG TAB.CHEW G TUBE SCH (09:44)
[2017-10-12] MEDS: Azithromycin TAB* 250 MG PO SCH (09:44)
[2017-10-12 10:19] VITALS: BP 147/80
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
== END 2017-10-12 11:15 | disposition home or self-care (01) | DRG 208 ==
LOC: ED 20:01 → ICU 21:02 → MED 10-11 15:49
PROVIDERS: ADMIT Internal Medicine; ATTEND Internal Medicine
PROC: 0BH17EZ Insertion of Endotracheal Airway into Trachea, Via Natural or Artificial Opening (ICD-10-PCS; principal; 2017-10-07)
PROC: 5A1945Z Respiratory Ventilation, 24-96 Consecutive Hours (ICD-10-PCS; 2017-10-07)
DX: J45.902 Unspecified asthma with status asthmaticus (principal); J96.01 Acute respiratory failure with hypoxia; J96.02 Acute respiratory failure with hypercapnia; E87.2 Acidosis; N17.9 Acute kidney failure, unspecified; I24.8 Other forms of acute ischemic heart disease; F12.90 Cannabis use, unspecified, uncomplicated; G89.29 Other chronic pain; E11.65 Type 2 diabetes mellitus with hyperglycemia; M54.9 Dorsalgia, unspecified; Z56.0 Unemployment, unspecified; Z88.0 Allergy status to penicillin; Z87.891 Personal history of nicotine dependence; Z83.3 Family history of diabetes mellitus; Z72.89 Other problems related to lifestyle; Z79.82 Long term (current) use of aspirin
CPT/HCPCS: 36415; 36600; 71045; 80048; 80053; 80061; 80076; 81003; 81015; 82140; 82550; 82553; 82803; 83605; 83735; 83880; 84100; 84145; 84484; 85025; 85027; 85060; 86140; 87040; 87070; 87077; 87086; 87150; 87205; 87502; 87641; 93005; 93306; 93970; 94002; 94003; 94640; 94760; 99285; A9270-GY; G8978-GP-CJ; G8979-GP-CJ; G8980-GP-CJ; J0171; J0330; J0456; J0696; J1644; J1940; J2704; J2930; J3010; J3490; J7512

== ENCOUNTER 2017-11-29 19:47 | Emergency (ER) | payer MEDICARE, MEDICAID ==
[2017-11-29] MEDS ORDERED: Albuterol/Ipratropium NEB.SOL* Albuterol 2.5 MG/Ipratropium 0.5 MG 3 ML INH ONE (22:27)
[2017-11-29] MEDS ORDERED: predniSONE TAB* 20 MG PO ONE (22:27)
[2017-11-29 22:45] LABS: ABS Basophils 0.1 10^3/ul (0-0.2); ABS Eosinophils 0.8 10^3/ul (0-0.6); ABS Lymphocytes 2.6 10^3/ul (1.0-4.8); ABS Monocytes 0.7 10^3/ul (0-0.8); ABS Neutrophils 5.2 10^3/ul (1.5-7.7); ABS Nucleated RBC 0 10^3/ul; Eosinophil % 8.3 % (0-6); Hematocrit 41 % (42-52); Hemoglobin 13.6 g/dl (14.0-18.0); Lymphocyte % 27.7 % (25-47); Mean Corpuscular HGB Conc 33 g/dl (31-36); Mean Corpuscular Hemoglobin 30 pg (27-31); Mean Corpuscular Volume 91 fL (80-94); Mean Platelet Volume 8.2 um3 (7.4-10.4); Nucleated Red Blood Cells % 0; Platelet Count 262 10^3/ul (150-450); Red Blood Count 4.51 10^6/ul (4.0-5.4); Red Cell Distribution Width 15 % (10.5-15); White Blood Count 9.3 10^3/ul (3.5-10.8)
[2017-11-29] MEDS: Albuterol 2.5 MG/3 ML NEB.SOL* (0.083%) INH SCH ×2 (22:48→22:54)
[2017-11-29 22:56] LABS: INR 0.95 (0.77-1.02)
[2017-11-29 23:02] LABS: EGFR Non-African American 60.6 (>60)
[2017-11-29] MEDS ORDERED: Albuterol HFA INHALER* 8 gm MDI INH SCH (23:45)
[2017-11-30 00:15] VITALS: BP 147/88
--- NOTE | 2017-11-30 00:40 | ED ---
Nia Salamanca Gabriel, scribbrianna for Kade Sheppard MD on 11/29/17 at 2221 . HPI Chest Pain - HPI Summary HPI Summary: This patient is a 62 year old M presenting to [facility] accompanied by his family with a chief complaint of CP. Pt has a history of asthma and DM but states he cannot afford his medication so he has been unable to take it. The patient rates the pain 2/10 in severity. Patient reports SOB and weakness. - History of Current Complaint Chief Complaint: EDChestPainROMI Time Seen by Provider: 11/29/17 21:43 Hx Obtained From: Patient Onset/Duration: Still Present Timing: Constant Initial Severity: Mild Current Severity: Mild Pain Intensity: 2 Pain Scale Used: 0-10 Numeric Chest Pain Location: Diffuse Chest Pain Radiates: No Associated Signs and Symptoms: Positive: Other: - SOB and weakness. - Additional Pertinent History Primary Care Physician: JESSICA - Allergy/Home Medications Allergies/Adverse Reactions: Allergies Allergy/AdvReac Type Severity Reaction Status Date / Time Penicillins Allergy Rash Verified 10/07/17 20:14 Home Medications: Home Medications Albuterol HFA INHALER* [Ventolin HFA Inhaler*] 1 puff INH Q4H PRN 11/29/17 [ History Confirmed 11/29/17] Fluticasone-Salmeterol 250-50* [Advair Diskus 250-50*] 1 puff INH BID 11/29/17 [ History Confirmed 11/29/17] Glimepiride (NF) 2 mg PO DAILY 11/29/17 [History Confirmed 11/29/17] Omeprazole CAP* [Prilosec CAP* 20 MG] 40 mg PO DAILY PRN 11/29/17 [History Confirmed 11/29/17] Sitaglip/Metform XR50/1000(NR) [Janumet Xr (NR)] 1 tab PO BID 11/29/17 [ History Confirmed 11/29/17] PMH/Surg Hx/FS Hx/Imm Hx Endocrine/Hematology History: Reports: Hx Diabetes Cardiovascular History: Denies: Hx Hypertension, Other Cardiovascular Problems/Disorders Respiratory History: Reports: Hx Asthma GI History: Reports: Hx Gastroesophageal Reflux Disease Musculoskeletal History: Reports: Hx Arthritis, Hx Back Problems Sensory History: Reports: Hx Contacts or Glasses Denies: Hx Hearing Aid Opthamlomology History: Reports: Hx Contacts or Glasses Psychiatric History: Denies: Hx Attention Deficit Hyperactivity Disorder, Hx Autism Infectious Disease History: No Infectious Disease History: Denies: Traveled Outside the [place] in Last 30 Days - Family History Known Family History: Negative: Renal Disease, Seizure Disorder - Social History Lives: With Family Alcohol Use: None Hx Substance Use: Yes Substance Use Type: Reports: Marijuana Hx Tobacco Use: Yes Smoking Status (MU): Former Smoker Review of Systems Positive: Chest Pain Positive: Shortness Of Breath Positive: Weakness All Other Systems Reviewed And Are Negative: Yes Physical Exam - Summary Physical Exam Summary: VITAL SIGNS: Reviewed. GENERAL: Patient is a well-developed and nourished male who is lying comfortable in the stretcher. Patient is not in any acute respiratory distress. HEAD AND FACE: No signs of trauma. No ecchymosis, hematomas or skull depressions. No sinus tenderness. EYES: PERRLA, EOMI x 2, No injected conjunctiva, no nystagmus. EARS: Hearing grossly intact. Ear canals and tympanic membranes are within normal limits. MOUTH: Oropharynx within normal limits. NECK: Supple, trachea is midline, no adenopathy, no JVD, no carotid bruit, no c- spine tenderness, neck with full ROM. CHEST: Symmetric, no tenderness at palpation LUNGS: Bilateral inspiratory and expiratory wheezes CVS: Regular rate and rhythm, S1 and S2 present, no murmurs or gallops appreciated. ABDOMEN: Soft, non-tender. No signs of distention. No rebound no guarding, and no masses palpated. Bowel sounds are normal. EXTREMITIES: FROM in all major joints, no edema, no cyanosis or clubbing. NEURO: Alert and oriented x 3. No acute neurological deficits. Speech is normal and follows commands. SKIN: Dry and warm Triage Information Reviewed: Yes Vital Signs On Initial Exam: Initial Vitals Temp Pulse Resp BP Pulse Ox 97.6 F 83 24 163/102 98 11/29/17 20:12 11/29/17 20:12 11/29/17 20:12 11/29/17 20:12 11/29/17 20:12 Vital Signs Reviewed: Yes Diagnostics - Vital Signs Vital Signs Temp Pulse Resp BP Pulse Ox 11/29/17 22:00 77 13 97 11/29/17 21:57 80 19 177/104 98 11/29/17 21:26 80 17 154/98 98 11/29/17 20:12 97.6 F 83 24 163/102 98 - Laboratory Result Diagrams: 11/29/17 22:37 11/29/17 22:37 Lab Statement: Any lab studies that have been ordered have been reviewed, and results considered in the medical decision making process. - Radiology CXR Radiology Interpretation Completed By: ED Physician - no acute process - EKG 2011 Cardiac Rate: NL EKG Rhythm: Sinus Rhythm - at 80 BPM EKG Interpretation: Normal axis. Normal interval. No ischemic changes Chest Pain Course/Dx - Course Assessment/Plan: This patient is a 62 year old M presenting to [facility] accompanied by his family with a chief complaint of CP. Pt has a history of asthma and DM but states he cannot afford his medication so he has been unable to take it. The patient rates the pain 2/10 in severity. Patient reports SOB and weakness. An EKG reveals Normal axis. Normal interval. No ischemic changes. CXR reveals, no acute process. Dx asthma. Test results with no significant abnormalities. In the ED course the patient was given a breathing treatment. Patient will be discharged with prescription for prednisone and follow up from PCP. The patient is agreeable with this plan. - Diagnoses Provider Diagnoses: Asthma Discharge - Sign-Out/Discharge Documenting (check all that apply): Discharge/Admit/Transfer - Discharge Plan Condition: Stable Disposition: HOME Prescriptions: predniSONE TAB* [Deltasone TAB*] 40 mg PO DAILY #10 tab Patient Education Materials: Asthma (ED) Referrals: Fanta Smith MD [Primary Care Provider] - 3 Days Additional Instructions: RETURN TO THE ER FOR ANY NEW OR WORSENING SYMPTOMS The documentation as recorded by the Nia romero Gabriel accurately reflects the service I personally performed and the decisions made by , Kade Sheppard MD.
--- NOTE | 2017-11-30 07:36 | RAD ---
INDICATION: Shortness of breath. COMPARISON: Comparison is made with a prior study from October 07, 2017. TECHNIQUE: A portable view of the chest was obtained. FINDINGS: Cardiac and mediastinal contours appear to be within normal limits. The lungs are hyperinflated. There are minimal small linear densities at the left lung base most consistent with subsegmental atelectasis or scarring. The lungs are otherwise clear. No pleural effusion is seen. IMPRESSION: FINDINGS SUGGESTIVE OF COPD, NO EVIDENCE FOR ACUTE FINDING.
== END 2017-11-30 00:23 | disposition home or self-care (01) ==
LOC: ED 19:47
DX: J45.909 Unspecified asthma, uncomplicated (principal); R07.89 Other chest pain; R53.1 Weakness; E11.9 Type 2 diabetes mellitus without complications; Z88.0 Allergy status to penicillin; Z87.891 Personal history of nicotine dependence
CPT/HCPCS: 36415; 71045; 80053; 83735; 83880; 84484; 85025; 85610; 85730; 93005; 99283; A9270-GY; J7512

== ENCOUNTER → 2018-05-01 21:02 | Emergency (ER) | payer MEDICAID, MEDICARE ==
[~2018-05-01 21:02] MED LIST changes: +Albuterol/Ipratropium NEB.SOL* Albuterol 2.5 MG/Ipratropium 0.5 MG 3 ML INH ONE; -EPINEPHRINE 1 MG/ML 1 ML VIAL ONE; +Insulin REGULAR(*) 1 UNITS UNIT SUBCUT ONE; -KETAMINE HCL* 50 MG/ML 10 ML VIAL ONE; -Succinylcholine* 20 MG/ML 10 ML VIAL ONE; +predniSONE TAB* 20 MG PO ONE
[2018-05-01 22:43] LABS: ABS Basophils 0.1 10^3/ul (0-0.2); ABS Eosinophils 0.5 10^3/ul (0-0.6); ABS Lymphocytes 1.9 10^3/ul (1.0-4.8); ABS Monocytes 0.7 10^3/ul (0-0.8); ABS Neutrophils 4.7 10^3/ul (1.5-7.7); ABS Nucleated RBC 0 10^3/ul; Eosinophil % 5.9 % (0-6); Hematocrit 48 % (42-52); Hemoglobin 16.2 g/dl (14.0-18.0); Lymphocyte % 24.5 % (25-47); Mean Corpuscular HGB Conc 34 g/dl (31-36); Mean Corpuscular Hemoglobin 30 pg (27-31); Mean Corpuscular Volume 90 fL (80-94); Nucleated Red Blood Cells % 0.1; Platelet Count 355 10^3/ul (150-450); Red Blood Count 5.33 10^6/ul (4.00-5.40); Red Cell Distribution Width 14 % (10.5-15); White Blood Count 7.9 10^3/ul (3.5-10.8)
[2018-05-01 22:58] LABS: EGFR Non-African American 57.1 (>60)
--- NOTE | 2018-05-01 23:12 | ED ---
Respiratory - HPI Summary HPI Summary: 63-year-old male presents with shortness of breath and cough for the past day. He states is similar to the asthma exacerbation in the past. She admits to some sinus congestion. No sore throat. He also admits to headache. No chest pain. He notes occasional shortness of breath with wheezing. He has been using his inhaler. No bowel pain. No nausea and vomiting. No fevers. - History of Current Complaint Chief Complaint: EDAsthma Stated Complaint: COUGH/SOB/HEADACHE Time Seen by Provider: 05/01/18 21:53 Pain Intensity: 0 Sputum Amount: None - Allergy/Home Medications Allergies/Adverse Reactions: Allergies Allergy/AdvReac Type Severity Reaction Status Date / Time Penicillins Allergy Rash Verified 05/01/18 21:13 PMH/Surg Hx/FS Hx/Imm Hx Endocrine/Hematology History: Reports: Hx Diabetes Cardiovascular History: Denies: Hx Hypertension, Other Cardiovascular Problems/Disorders Respiratory History: Reports: Hx Asthma GI History: Reports: Hx Gastroesophageal Reflux Disease Musculoskeletal History: Reports: Hx Arthritis, Hx Back Problems Sensory History: Reports: Hx Contacts or Glasses Denies: Hx Hearing Aid Opthamlomology History: Reports: Hx Contacts or Glasses Psychiatric History: Denies: Hx Attention Deficit Hyperactivity Disorder, Hx Autism Infectious Disease History: No Infectious Disease History: Denies: Traveled Outside the [place] in Last 30 Days - Family History Known Family History: Positive: Unknown - Pt is unable to provide hx. Level 5 caveat Negative: Renal Disease, Seizure Disorder - Social History Alcohol Use: None Hx Substance Use: Yes Substance Use Type: Reports: Marijuana Hx Tobacco Use: Yes Smoking Status (MU): Former Smoker Review of Systems Negative: Fever Negative: Chest Pain Positive: Shortness Of Breath, Cough All Other Systems Reviewed And Are Negative: Yes Physical Exam Triage Information Reviewed: Yes Vital Signs On Initial Exam: Initial Vitals Temp Pulse Resp BP Pulse Ox 97.6 F 102 16 154/108 96 05/01/18 21:10 05/01/18 21:10 05/01/18 21:10 05/01/18 21:10 05/01/18 21:10 Vital Signs Reviewed: Yes Appearance: Positive: Well-Appearing Skin: Positive: Warm, Dry Head/Face: Positive: Normal Head/Face Inspection Eyes: Positive: Normal, Conjunctiva Clear ENT: Positive: Normal ENT inspection, Pharynx normal, TMs normal Neck: Positive: Supple, Nontender, No Lymphadenopathy Respiratory/Lung Sounds: Positive: Breath Sounds Present, Wheezes Cardiovascular: Positive: Normal, RRR Abdomen Description: Positive: Nontender, Soft Bowel Sounds: Positive: Present Musculoskeletal: Positive: Normal Neurological: Positive: Normal Psychiatric: Positive: Normal Diagnostics - Vital Signs Vital Signs Temp Pulse Resp BP Pulse Ox 05/01/18 22:31 90 20 98 05/01/18 21:10 97.6 F 102 16 154/108 96 - Laboratory Lab Results: Lab Results 05/01/18 05/01/18 05/01/18 Range/Units 22:35 22:35 22:35 WBC 7.9 (3.5-10.8) 10^3/ul RBC 5.33 (4.00-5.40) 10^6/ul Hgb 16.2 (14.0-18.0) g/dl Hct 48 (42-52) % MCV 90 (80-94) fL MCH 30 (27-31) pg MCHC 34 (31-36) g/dl RDW 14 (10.5-15) % Plt Count 355 (150-450) 10^3/ul MPV 9.0 (7.4-10.4) um3 Neut % (Auto) 59.4 (38-83) % Lymph % (Auto) 24.5 L (25-47) % [place] % (Auto) 9.1 H (0-7) % Eos % (Auto) 5.9 (0-6) % Baso % (Auto) 1.1 (0-2) % Absolute Neuts (auto) 4.7 (1.5-7.7) 10^3/ul Absolute Lymphs (auto) 1.9 (1.0-4.8) 10^3/ul Absolute Monos (auto) 0.7 (0-0.8) 10^3/ul Absolute Eos (auto) 0.5 (0-0.6) 10^3/ul Absolute Basos (auto) 0.1 (0-0.2) 10^3/ul Absolute Nucleated RBC 0 10^3/ul Nucleated RBC % 0.1 Sodium 132 L (135-145) mmol/L Potassium 4.8 (3.5-5.0) mmol/L Chloride 99 L (101-111) mmol/L Carbon Dioxide 27 (22-32) mmol/L Anion Gap 6 (2-11) mmol/L BUN 17 (6-24) mg/dL Creatinine 1.28 H (0.67-1.17) mg/dL Est GFR ( Amer) 69.1 (>60) Est GFR (Non-Af Amer) 57.1 (>60) BUN/Creatinine Ratio 13.3 (8-20) Glucose 392 H (70-100) mg/dL Calcium 9.3 (8.6-10.3) mg/dL Total Bilirubin 0.40 (0.2-1.0) mg/dL AST 15 (13-39) U/L ALT 19 (7-52) U/L Alkaline Phosphatase 72 (34-104) U/L B-Natriuretic Peptide 8 ( - 100) pg/mL Total Protein 8.5 (6.4-8.9) g/dL Albumin 4.1 (3.2-5.2) g/dL Globulin 4.4 H (2-4) g/dL Albumin/Globulin Ratio 0.9 L (1-3) Result Diagrams: 05/01/18 22:35 05/01/18 22:35 Lab Statement: Any lab studies that have been ordered have been reviewed, and results considered in the medical decision making process. - Radiology chest Radiology Interpretation Completed By: ED Physician Summary of Radiographic Findings: nad Re-Evaluation - Re-Evaluation First Eval Change: Improved Comment: feeling better after treatment, discussed importance of taking DM meds Disposition - Course Course Of Treatment: 63-year-old male presents with shortness of breath and cough for the past day. He states is similar to the asthma exacerbation in the past. She admits to some sinus congestion. No sore throat. He also admits to headache. No chest pain. He notes occasional shortness of breath with wheezing. He has been using his inhaler. No bowel pain. No nausea and vomiting. No fevers. On exam some wheezing noted. Chest x-ray read by me as normal. Labs within normal limits. Gave treatment and feeling better. Patient states that does not always take diabetic medication. gave insulin today as is giving steroids here. Told to take his medication as steroid will cause his sugars to increase. Told to follow-up with primary. Patient understands and agrees with plan. - Differential Dx - Cardiopulmonary Differential Diagnoses - Cardiopulmonary: Asthma, Influenza, Lower Resp Infection - Diagnoses Provider Diagnoses: Asthma Discharge - Sign-Out/Discharge Documenting (check all that apply): Patient Departure - Discharge Plan Condition: Good Disposition: HOME Prescriptions: predniSONE TAB* [Deltasone 20 MG TAB*] 40 mg PO DAILY #8 tab Patient Education Materials: Asthma (ED) Referrals: Fanta Smith MD [Primary Care Provider] - Additional Instructions: Use inhaler up to two puffs every 4 hours for cough and wheezing Take steroid once a day for 4 more days starting tomorrow Take Tylenol for pain every 6 hours watch sugars as will elevate follow up with primary Return to ED if develop severe shortness of breath, worsening chest pain, or any new or worsening symptoms - Billing Disposition and Condition Condition: GOOD Disposition: Home
[2018-05-02 00:29] VITALS: BP 134/70
--- NOTE | 2018-05-02 08:11 | RAD ---
Indication: Cough, shortness of breath. 2 views of the chest including dual energy PA views demonstrate no mediastinal shift. Heart is of normal size and configuration. Lung cunha are clear. IMPRESSION: No active cardiopulmonary disease is noted. R0
== END | disposition home or self-care (01) ==
LOC: ED 21:02
DX: J45.909 Unspecified asthma, uncomplicated (principal); R06.02 Shortness of breath; R05 Cough; R51 Headache; Z87.891 Personal history of nicotine dependence
CPT/HCPCS: 36415; 71046; 80053; 83880; 85025; 99282; A9270-GY; J7512

== ENCOUNTER 2018-06-17 08:53 | Inpatient (IN) | payer MEDICARE ==
[2018-06-17] MEDS ORDERED: Albuterol/Ipratropium NEB.SOL* Albuterol 2.5 MG/Ipratropium 0.5 MG 3 ML INH PRN (09:26)
[2018-06-17] MEDS ORDERED: NS 0.9% 1000 ML*IV.FLUID IV ONE (09:26)
[2018-06-17 09:46] LABS: ABS Basophils 0.1 10^3/ul (0-0.2); ABS Eosinophils 0.4 10^3/ul (0-0.6); ABS Lymphocytes 1.4 10^3/ul (1.0-4.8); ABS Monocytes 0.8 10^3/ul (0-0.8); ABS Neutrophils 10.5 10^3/ul (1.5-7.7); ABS Nucleated RBC 0 10^3/ul; Eosinophil % 3.2 %; Hematocrit 42 % (42-52); Hemoglobin 13.7 g/dl (14.0-18.0); Lymphocyte % 10.9 %; Mean Corpuscular HGB Conc 33 g/dl (31-36); Mean Corpuscular Hemoglobin 29 pg (27-31); Mean Corpuscular Volume 89 fL (80-94); Mean Platelet Volume 9.4 fL (7.4-10.4); Nucleated Red Blood Cells % 0; Platelet Count 326 10^3/ul (150-450); Red Cell Distribution Width 15 % (10.5-15); White Blood Count 13.3 10^3/ul (3.5-10.8)
[2018-06-17 10:05] LABS: Urine Appearance Clear; Urine Blood Negative (Negative); Urine Color Straw; Urine Ketones Negative (Negative); Urine Protein Negative (Negative); Urine Specific Gravity 1.021 (1.010-1.030); Urine Urobilinogen Negative (Negative)
[2018-06-17 10:13] LABS: EGFR Non-African American 60.4 (>60); INR 0.9 (0.77-1.02)
[2018-06-17] MEDS ORDERED: Insulin REGULAR(*) 1 UNITS UNIT IV PUSH ONE ×2 (10:21→10:59)
[2018-06-17] MEDS ORDERED: Acetaminophen TAB* 325 MG PO ONE (10:27)
--- NOTE | 2018-06-17 10:41 | ED ---
HPI Cardiac - HPI Summary HPI Summary: Patient presents with acute issue of left-sided chest pain after coughing harshly last night. SOB. Concerned he may have PNA here as he has h/o and feels similar. Reports his cough started about a week and half ago and has been having chest discomfort throughout anterior chest wall - denies hemoptysis. Admits he was sick 3-1/2 weeks prior to this with URI symptoms however he feels they resolved before this new cough started again. He has been exposed to young children with URI symptoms and assumed that's where he developed his initial URI. He is unsure of where his recent cough/suspected pneumonia developed. He denies fevers or chills however appears fatigued today. His throat is sore and he has mild lymphadenopathy in his cervical region. Denies Nausea, Vomiting, Diarrhea, ab pain, [place], neck pain/stiffness. History of asthma and has not recently used any albuterol but would like to try this today. Also admits to smoking marijuana multiple times a week but no tobacco use, other illicit drugs nor ETOH abuse. No known cardiac issues however he does admit to untreated diabetes at this point in time. Reports is having difficulty staying on any medication due to his insurance changing frequently. He also reports he was on metformin most recently however he developed hives and so stopped taking this. Hives have resolved since cessation. NOTE: h/o MRSA - has a Rt occipital scalp infection today - mild tenderness - no reported drainage. Last scalp infection resolved w/ anbx alone. - History of Current Complaint Chief Complaint: EDShortnessOfBreath Stated Complaint: RIB PAIN COUGH Time Seen by Provider: 06/17/18 09:09 Hx Obtained From: Patient, Family/Carton Catcher - girlfriend, male child Pain Intensity: 7 - Additional Pertinent History Primary Care Physician: [id number] - Allergy/Home Medications Allergies/Adverse Reactions: Allergies Allergy/AdvReac Type Severity Reaction Status Date / Time metformin Allergy Hives Verified 06/17/18 09:29 Penicillins Allergy Rash Verified 06/17/18 09:03 Home Medications: Home Medications Aspirin 81 mg PO DAILY 06/17/18 [History Confirmed 06/17/18] PMH/Surg Hx/FS Hx/Imm Hx Previously Healthy: Yes Endocrine/Hematology History: Reports: Hx Diabetes - no meds at this time Cardiovascular History: Denies: Hx Hypertension, Other Cardiovascular Problems/Disorders Respiratory History: Reports: Hx Asthma - uses albuterol inhaler and granddaughter's neb machine, Hx Pneumonia Denies: Hx Chronic Obstructive Pulmonary Disease (COPD), Hx Pulmonary Edema, Hx Pulmonary Embolism GI History: Reports: Hx Gastroesophageal Reflux Disease Musculoskeletal History: Reports: Hx Arthritis, Hx Back Problems Sensory History: Reports: Hx Contacts or Glasses Denies: Hx Hearing Aid Opthamlomology History: Reports: Hx Contacts or Glasses Psychiatric History: Denies: Hx Attention Deficit Hyperactivity Disorder, Hx Autism Infectious Disease History: Yes Infectious Disease History: Reports: Hx of Known/Suspected MRSA Denies: Traveled Outside the [place] in Last 30 Days - Family History Known Family History: Negative: Renal Disease, Seizure Disorder - Social History Lives: With Family Alcohol Use: None Hx Substance Use: Yes Substance Use Type: Reports: Marijuana - 5 bowls a week Hx Tobacco Use: Yes - not currently Smoking Status (MU): Former Smoker Review of Systems Positive: Fatigue Eyes: Negative Positive: Sore Throat Positive: Chest Pain Positive: Shortness Of Breath, Cough Gastrointestinal: Negative Positive: no symptoms reported Musculoskeletal: Negative Skin: Negative Neurological: Negative Psychological: Normal All Other Systems Reviewed And Are Negative: Yes Physical Exam Triage Information Reviewed: Yes Vital Signs On Initial Exam: Initial Vitals Temp Pulse Resp BP Pulse Ox 100.8 F 117 24 160/83 95 06/17/18 09:03 06/17/18 09:03 06/17/18 09:03 06/17/18 09:03 06/17/18 09:03 Vital Signs Reviewed: Yes Appearance: Positive: No Pain Distress, Well-Nourished, Ill-Appearing - appears fatigued Skin: Positive: Warm, Skin Color Reflects Adequate Perfusion, Dry Head/Face: Positive: Normal Head/Face Inspection Eyes: Positive: Normal, EOMI, [place], Conjunctiva Clear. Negative: Conjunctiva Inflammed, Discharge ENT: Positive: Normal ENT inspection, Pharynx normal, TMs normal. Negative: Nasal congestion, Nasal drainage Neck: Positive: Supple, Nontender, No Lymphadenopathy Respiratory/Lung Sounds: Positive: Breath Sounds Present, Rales - Lt lower lobe , Fatigue - mild to moderate. Negative: Subcutaneous Emphysema, Stridor, Tracheal Deviation, Wheezes, Unable to speak in full sentences Cardiovascular: Positive: Tachycardia, S1, S2. Negative: Murmur, Rub, Leg Edema Left, Leg Edema Right Abdomen Description: Positive: Nontender, No Organomegaly, Soft Bowel Sounds: Positive: Present Musculoskeletal: Positive: Normal, Strength/ROM Intact Neurological: Positive: Normal, Sensory/Motor Intact, Alert, Oriented to Person Place, Time, CN Intact II-III Psychiatric: Positive: Normal - [place] Coma Scale Best Eye Response: 4 - Spontaneous Best Motor Response: 6 - Obeys Commands Best Verbal Response: 5 - Oriented Coma Scale Total: 15 Diagnostics - Vital Signs Vital Signs Temp Pulse Resp BP Pulse Ox 06/17/18 10:00 113 17 99 06/17/18 09:57 114 15 162/100 99 06/17/18 09:56 96 06/17/18 09:42 114 12 98 06/17/18 09:03 100.8 F 117 24 160/83 95 - Laboratory Lab Results: Lab Results 06/17/18 06/17/18 06/17/18 Range/Units 09:25 09:25 09:25 WBC 13.3 H (3.5-10.8) 10^3/ul RBC 4.70 (4.00-5.40) 10^6/ul Hgb 13.7 L (14.0-18.0) g/dl Hct 42 (42-52) % MCV 89 (80-94) fL MCH 29 (27-31) pg MCHC 33 (31-36) g/dl RDW 15 (10.5-15) % Plt Count 326 (150-450) 10^3/ul MPV 9.4 (7.4-10.4) fL Neut % (Auto) 78.8 % Lymph % (Auto) 10.9 % [place] % (Auto) 6.1 % Eos % (Auto) 3.2 % Baso % (Auto) 1.0 % Absolute Neuts (auto) 10.5 H (1.5-7.7) 10^3/ul Absolute Lymphs (auto) 1.4 (1.0-4.8) 10^3/ul Absolute Monos (auto) 0.8 (0-0.8) 10^3/ul Absolute Eos (auto) 0.4 (0-0.6) 10^3/ul Absolute Basos (auto) 0.1 (0-0.2) 10^3/ul Absolute Nucleated RBC 0 10^3/ul Nucleated RBC % 0 INR (Anticoag Therapy) 0.90 (0.77-1.02) APTT 25.6 L (26.0-36.3) seconds D-Dimer, Quantitative 349 H (Less Than 230) ng/mL Sodium 133 L (135-145) mmol/L Potassium 4.5 (3.5-5.0) mmol/L Chloride 100 L (101-111) mmol/L Carbon Dioxide 25 (22-32) mmol/L Anion Gap 8 (2-11) mmol/L BUN 22 (6-24) mg/dL Creatinine 1.22 H (0.67-1.17) mg/dL Est GFR ( Amer) 73.1 (>60) Est GFR (Non-Af Amer) 60.4 (>60) BUN/Creatinine Ratio 18.0 (8-20) Glucose 533 H* (70-100) mg/dL Lactic Acid (0.5-2.0) mmol/L Calcium 9.3 (8.6-10.3) mg/dL Total Bilirubin 0.30 (0.2-1.0) mg/dL AST 11 L (13-39) U/L ALT 12 (7-52) U/L Alkaline Phosphatase 111 H (34-104) U/L Troponin I 0.01 (<0.04) ng/mL B-Natriuretic Peptide (<=100) pg/mL Total Protein 7.4 (6.4-8.9) g/dL Albumin 3.9 (3.2-5.2) g/dL Globulin 3.5 (2-4) g/dL Albumin/Globulin Ratio 1.1 (1-3) Urine Color Urine Appearance Urine pH (5-9) Ur Specific [place] (1.010-1.030) Urine Protein (Negative) Urine Ketones (Negative) Urine Blood (Negative) Urine Nitrate (Negative) Urine Bilirubin (Negative) Urine Urobilinogen (Negative) Ur Leukocyte Esterase (Negative) Urine Glucose (Negative) Influenza A (Rapid) (Negative) Influenza B (Rapid) (Negative) 06/17/18 06/17/18 06/17/18 Range/Units 09:25 09:25 09:33 WBC (3.5-10.8) 10^3/ul RBC (4.00-5.40) 10^6/ul Hgb (14.0-18.0) g/dl Hct (42-52) % MCV (80-94) fL MCH (27-31) pg MCHC (31-36) g/dl RDW (10.5-15) % Plt Count (150-450) 10^3/ul MPV (7.4-10.4) fL Neut % (Auto) % Lymph % (Auto) % [place] % (Auto) % Eos % (Auto) % Baso % (Auto) % Absolute Neuts (auto) (1.5-7.7) 10^3/ul Absolute Lymphs (auto) (1.0-4.8) 10^3/ul Absolute Monos (auto) (0-0.8) 10^3/ul Absolute Eos (auto) (0-0.6) 10^3/ul Absolute Basos (auto) (0-0.2) 10^3/ul Absolute Nucleated RBC 10^3/ul Nucleated RBC % INR (Anticoag Therapy) (0.77-1.02) APTT (26.0-36.3) seconds D-Dimer, Quantitative (Less Than 230) ng/mL Sodium (135-145) mmol/L Potassium (3.5-5.0) mmol/L Chloride (101-111) mmol/L Carbon Dioxide (22-32) mmol/L Anion Gap (2-11) mmol/L BUN (6-24) mg/dL Creatinine (0.67-1.17) mg/dL Est GFR ( Amer) (>60) Est GFR (Non-Af Amer) (>60) BUN/Creatinine Ratio (8-20) Glucose (70-100) mg/dL Lactic Acid 1.3 (0.5-2.0) mmol/L Calcium (8.6-10.3) mg/dL Total Bilirubin (0.2-1.0) mg/dL AST (13-39) U/L ALT (7-52) U/L Alkaline Phosphatase (34-104) U/L Troponin I (<0.04) ng/mL B-Natriuretic Peptide 11 (<=100) pg/mL Total Protein (6.4-8.9) g/dL Albumin (3.2-5.2) g/dL Globulin (2-4) g/dL Albumin/Globulin Ratio (1-3) Urine Color Straw Urine Appearance Clear Urine pH 6.0 (5-9) Ur Specific [place] 1.021 (1.010-1.030) Urine Protein Negative (Negative) Urine Ketones Negative (Negative) Urine Blood Negative (Negative) Urine Nitrate Negative (Negative) Urine Bilirubin Negative (Negative) Urine Urobilinogen Negative (Negative) Ur Leukocyte Esterase Negative (Negative) Urine Glucose 3+(>=500 mg/dl) A (Negative) Influenza A (Rapid) (Negative) Influenza B (Rapid) (Negative) 06/17/18 Range/Units 09:46 WBC (3.5-10.8) 10^3/ul RBC (4.00-5.40) 10^6/ul Hgb (14.0-18.0) g/dl Hct (42-52) % MCV (80-94) fL MCH (27-31) pg MCHC (31-36) g/dl RDW (10.5-15) % Plt Count (150-450) 10^3/ul MPV (7.4-10.4) fL Neut % (Auto) % Lymph % (Auto) % [place] % (Auto) % Eos % (Auto) % Baso % (Auto) % Absolute Neuts (auto) (1.5-7.7) 10^3/ul Absolute Lymphs (auto) (1.0-4.8) 10^3/ul Absolute Monos (auto) (0-0.8) 10^3/ul Absolute Eos (auto) (0-0.6) 10^3/ul Absolute Basos (auto) (0-0.2) 10^3/ul Absolute Nucleated RBC 10^3/ul Nucleated RBC % INR (Anticoag Therapy) (0.77-1.02) APTT (26.0-36.3) seconds D-Dimer, Quantitative (Less Than 230) ng/mL Sodium (135-145) mmol/L Potassium (3.5-5.0) mmol/L Chloride (101-111) mmol/L Carbon Dioxide (22-32) mmol/L Anion Gap (2-11) mmol/L BUN (6-24) mg/dL Creatinine (0.67-1.17) mg/dL Est GFR ( Amer) (>60) Est GFR (Non-Af Amer) (>60) BUN/Creatinine Ratio (8-20) Glucose (70-100) mg/dL Lactic Acid (0.5-2.0) mmol/L Calcium (8.6-10.3) mg/dL Total Bilirubin (0.2-1.0) mg/dL AST (13-39) U/L ALT (7-52) U/L Alkaline Phosphatase (34-104) U/L Troponin I (<0.04) ng/mL B-Natriuretic Peptide (<=100) pg/mL Total Protein (6.4-8.9) g/dL Albumin (3.2-5.2) g/dL Globulin (2-4) g/dL Albumin/Globulin Ratio (1-3) Urine Color Urine Appearance Urine pH (5-9) Ur Specific [place] (1.010-1.030) Urine Protein (Negative) Urine Ketones (Negative) Urine Blood (Negative) Urine Nitrate (Negative) Urine Bilirubin (Negative) Urine Urobilinogen (Negative) Ur Leukocyte Esterase (Negative) Urine Glucose (Negative) Influenza A (Rapid) Negative (Negative) Influenza B (Rapid) Negative (Negative) Result Diagrams: 06/17/18 09:25 06/17/18 09:25 Lab Statement: Any lab studies that have been ordered have been reviewed, and results considered in the medical decision making process. Re-Evaluation - Re-Evaluation First Eval Change: Unchanged - no change in resp sx since albuterol Disposition - Course Course Of Treatment: Patient presents with acute onset left-sided chest pain during coughing last night. He reports this feels like previous pneumonia and decided to come in for evaluation as he's had a cough for the past week and half. Vitals are impressive for tachycardia and low-grade fever of 100.8 temporally. His blood pressure is 160/80 at admission and pulse ox 95% on room air. He was provided with 2 L nasal cannula for symptom relief as he appeared to be SOB, mildly tachypnic however he reports minimal change. He is able to speak in full sentences however also appears somewhat short of breath at times. Chest x-ray reveals bilateral patchy infiltrates. Influenza neg. White blood cells 13 with left shift. His initial lactic acid level is within normal limits however repeat is 2.1. Blood glucose is in the 500's with positive glucosuria and reported untreated diabetes. Venous pH 7.3 - does not appear to be in DKA but insulin bolus was ordered. ECG: sinus tachycardia, 122 bpm, no ST elevations. Sepsis protocol was initiated patient received normal saline 30 cc per kg as well as Levaquin once chest x-ray returned d/t PCN allergy. He also has an elevated d-dimer which could indicate a pulmonary embolism. Discussed case with Dr. Reyez who agrees to admit. She will order CTA to rule out PE. Patient agrees to admission and reports last time he was here with pneumonia, he came in for 3 days. Comfortable at this time - simply reports he' s tired and falls asleep frequently - girlfriend and small child are present with him in room. - Diagnoses Provider Diagnoses: Sepsis, Pneumonia, Poorly controlled diabetes mellitus Discharge - Sign-Out/Discharge Documenting (check all that apply): Patient Departure - Discharge Plan Condition: Guarded Disposition: ADMITTED TO [facility] - Billing Disposition and Condition Condition: GUARDED Disposition: Admitted to [facility]
[2018-06-17] MEDS ORDERED: Levofloxacin 750 MG IVPREMIX(* 750 MG/150 ML BAG IVPB ONE (11:35)
[2018-06-17] MEDS ORDERED: Iodixanol* (CONTRAST) 320 MG/ML 100 ML SDV IV ONE (11:54)
[2018-06-17] MEDS ORDERED: Dextrose 50% Syringe 50 ML* 25 GM/50 ML SYRINGE IV PUSH PRN ×2 (12:29→13:02)
[2018-06-17] MEDS ORDERED: Insulin LISPRO* 1 UNITS UNIT SUBCUT ONE (12:29)
[2018-06-17] MEDS ORDERED: Al Hydrox/Mg Hydrox/Simet LIQ* 30 ML UDC PO PRN (13:00)
[2018-06-17] MEDS ORDERED: NS 0.9% 1000 ML* 1,000 ML IV SCH (13:00)
[2018-06-17] MEDS ORDERED: Insulin GLARGINE(*) 1 UNITS UNIT SUBCUT ONE (13:04)
[2018-06-17] MEDS ORDERED: Albuterol HFA INHALER* 8 gm MDI INH PRN (13:04)
[2018-06-17] MEDS ORDERED: Omeprazole CAP* 20 MG PO PRN (13:04)
[2018-06-17] MEDS: Glimepiride (NF) 2 MG TAB PO SCH ×2 (15:18→21:08)
[2018-06-17] MEDS: Acetaminophen TAB* 325 MG PO PRN (15:29)
[2018-06-17] MEDS: Heparin VIAL(*) 5000 UNITS/ML VIAL (FIVE THOUSAND) SUBCUT SCH ×2 (15:29→21:07)
--- NOTE | 2018-06-17 17:08 | HP ---
CC: Sharon Montesinos NP from [place] * HISTORY AND PHYSICAL: DATE OF ADMISSION: 06/17/18 PRIMARY CARE PROVIDER: Sharon Montesinos NP from [place]. CHIEF COMPLAINT: Shortness of breath, cough, and left-sided chest pain. HISTORY OF PRESENT ILLNESS: Iker Galaviz is a 63-year-old male with a history of COPD and diabetes, who stated that he stopped taking his diabetic medications approximately a month ago. He ran out of glyburide and he did not get to have it refilled. He also has had financial problems with filling the medications. He used to be on Janumet and that worked fine, but later on when he switched on to generic METFORMIN, he developed hives from it and he stopped taking it. He is taking care of 4 children at his home and they all have been getting through respiratory virus in the past month and he said that initially he got a "cold" and then it got better, but in the past week or so, he has been coughing a lot and feeling poorly. Today in the morning, he woke up with pleuritic chest pain on the left side and he decided to come in to hospital for evaluation. Here, he was noted to be tachycardic with a temperature of 100.8 degrees and a sugar level of over 500. He is going to be admitted with a diagnosis of sepsis, left lung pneumonia, and uncontrolled diabetes. PAST MEDICAL HISTORY: 1. History of asthma/COPD, status post intubation for acute respiratory failure in October 2017. 2. Diabetes type 2. 3. Chronic back pain. CURRENT MEDICATIONS: Include: 1. Omeprazole 40 mg daily. 2. Advair 250/50 one inhalation b.i.d. 3. Albuterol inhaler on a p.r.n. basis. 4. Aspirin 81 mg daily. ALLERGIES: METFORMIN and PENICILLIN. FAMILY HISTORY: Positive for mother who of complications of diabetes. Father of unknown disease. The patient has 6 siblings. SOCIAL HISTORY: The patient is unemployed, lives with his longtime girlfriend, Ashley, who is his healthcare proxy. They have 4 children, the youngest one is 1 year old, the oldest is 9 years old. He takes care of all of them at home. He smokes marijuana several times a day. He stopped smoking cigarettes approximately 5 years ago and he has a history of smoking over 40 years of pack per day or more. He drinks alcohol occasionally, beer. REVIEW OF SYSTEMS: Please see history of present illness. In addition to above mentioned, the patient stated that he had been checking his sugars occasionally and they had been in the 200s range. He denies any polyuria, polydipsia, or blurry vision. He stated that when he coughs, his sputum is rather clear. All of the remaining 12 systems were reviewed with the patient and were otherwise negative. PHYSICAL EXAMINATION GENERAL: The patient is a very pleasant 63-year-old male, who is in no acute distress. Alert, awake, and oriented x3. VITAL SIGNS: Blood pressure of 133/79, heart rate of 118 and regular, respiratory rate 14, oxygen saturation 96% on room air, and temperature 100.8. HEENT: Head atraumatic and normocephalic. Eyes: Pupils equal, reactive to light and accommodation. Oropharynx is clear. Mucosa moist. NECK: Supple. No JVD. No bruits bilaterally. RESPIRATORY: Coarse breaths sounds bilateral lower lungs, otherwise clear. CARDIOVASCULAR: Regular rate and rhythm. No murmur. ABDOMEN: Soft, nontender. Bowel sounds present in all 4 quadrants. EXTREMITIES: There is no edema. Pulses 2+ bilaterally. No clubbing or cyanosis. NEURO EVALUATION: The speech is clear. Cranial nerves II through XII grossly intact. Motor strength is 5/5 bilaterally. EVALUATION OF THE SKIN: No rashes or ecchymotic areas noted. PSYCHIATRIC EVALUATION: Oriented x3. Pleasant and cooperative with evaluation with no evidence of anxiety or depression. LABORATORY DATA: Showed sodium of 133, potassium 4.5, chloride 100, carbon dioxide 25, BUN 22, creatinine 1.22. Liver function tests showed alkaline phosphatase of 111, otherwise AST of 11, ALT of 12, bilirubin of 0.3. Blood glucose level was 533 on presentation. Lactic acid was 1.3, the repeated lactic acid was 2.1. CBC with white blood cell count of 13.3, hemoglobin of 13.7, hematocrit of 42, and platelets of 326. A venous blood gas showed pH of 7.33, pCO2 of 45, pO2 of 43, and bicarb of 22.6. CT angiogram of the chest obtained on admission showed limited study. No PE. Minimal airspace disease in the lingula and fatty infiltration of the liver. The patient's EKG showed sinus tachycardia with a heart rate of 122 beats per minute. ASSESSMENT AND RENDON: 1. The patient presented with sepsis due to pneumonia in the lingula. That explains his pleuritic left-sided chest pain. He is going to be placed on admission and treated with ceftriaxone and azithromycin. Septum cultures are going to be obtained and blood cultures already obtained in the ED. 2. In regard to the patient's uncontrolled diabetes, the patent stopped taking all of his diabetic medications several months ago. We will start the patient on glimepiride and continue insulin sliding scale for the time being. I will also treat patient with 1 dose of insulin lispro 20 units and another dose of insulin Lantus 10 units. The patient's most recent sugar level after a total of 18 units of IV regular insulin was a little bit over 300. 3. For DVT prophylaxis, the patient is going to be placed on Heparin subcutaneously. 4. The patient's code status is full and surrogate is his girlfriend. TIME SPENT: Approximately 65 minutes was spent on admission of this patient, more than half that time was spent [id number] with the patient during the interview and physical exam. [id number]/[facility] #: [id number] DANUTA
[2018-06-17] MEDS: Insulin LISPRO* 1 UNITS UNIT SUBCUT SCH ×2 (17:12→21:07)
[2018-06-17] MEDS: Mometasone/Formoter 200/5 MDI INH SCH (20:19)
[2018-06-17] MEDS: Docusate CAP* 100 MG PO SCH ×2 (21:07→21:10)
[2018-06-18] MEDS: Heparin VIAL(*) 5000 UNITS/ML VIAL (FIVE THOUSAND) SUBCUT SCH ×3 (05:17→21:10)
[2018-06-18] MEDS: Mometasone/Formoter 200/5 MDI INH SCH ×2 (07:21→19:21)
[2018-06-18] MEDS: Glimepiride (NF) 2 MG TAB PO SCH ×2 (07:57→20:45)
[2018-06-18] MEDS: Aspirin 81 mg CHEW TAB* 81 MG TAB.CHEW PO SCH (08:46)
[2018-06-18] MEDS: Docusate CAP* 100 MG PO SCH ×2 (08:46→20:45)
[2018-06-18] MEDS: Insulin LISPRO* 1 UNITS UNIT SUBCUT SCH ×4 (08:46→20:44)
--- NOTE | 2018-06-18 09:09 | PN ---
Subjective Date of Service: 06/18/18 Interval History: Pt is feeling better. cough and left chest pain are resolving Objective Active Medications: Acetaminophen (Tylenol Tab*) 650 mg PO Q4H PRN PRN Reason: FEVER/PAIN Last Admin: 06/17/18 15:29 Dose: 650 mg Al Hydrox/Mg Hydrox/Simethicone (Maalox Plus*) 30 ml PO Q6H PRN PRN Reason: INDIGESTION Last Admin: 06/18/18 03:50 Dose: 30 ml Albuterol (Ventolin Hfa Inhaler*) 1 puff INH Q4H PRN PRN Reason: SOB/WHEEZING Albuterol/Ipratropium (Duoneb (Albuterol 2.5 Mg/Ipratropium 0.5 Mg)) 1 neb INH Q20M PRN PRN Reason: SHORTNESS OF BREATH Last Admin: 06/17/18 09:52 Dose: 1 neb Aspirin (Aspirin 81 Mg Chew Tab*) 81 mg PO DAILY [facility] Last Admin: 06/18/18 08:46 Dose: 81 mg Dextrose (D50w Syringe 50 Ml*) 12.5 gm IV PUSH .FOR FS < 60 - SS PRN PRN Reason: FS < 60 Dextrose (D50w Syringe 50 Ml*) 12.5 gm IV PUSH .FOR FS < 60 - SS PRN PRN Reason: FS < 60 Docusate Sodium (Colace Cap*) 100 mg PO BID [facility] Last Admin: 06/18/18 08:46 Dose: Not Given Glimepiride (Glimepiride (Nf)) 4 mg PO BID [facility] Last Admin: 06/18/18 07:57 Dose: Not Given Heparin Sodium (Porcine) (Heparin Vial(*)) 5,000 units SUBCUT Q8HR [facility] Last Admin: 06/18/18 05:17 Dose: 5,000 units Ceftriaxone Sodium 1 gm/ (Sodium Chloride) 50 mls @ 200 mls/hr IVPB Q24H [facility] Azithromycin 500 mg/ Sodium (Chloride) 250 mls @ 250 mls/hr IVPB Q24H [facility] Insulin Human Lispro (Humalog*) 0 units SUBCUT ACHS [facility]; Protocol Last Admin: 06/18/18 08:46 Dose: 4 unit Mometasone Furoate/Formoterol Fumar (Dulera 200/5 Mdi*) 2 puff INH BID [facility] Last Admin: 06/18/18 07:21 Dose: 2 puff Omeprazole (Prilosec Cap*) 40 mg PO DAILY PRN PRN Reason: INDIGESTION Vital Signs - 8 hr 06/18/18 06/18/18 06/18/18 03:40 07:23 07:46 Temperature 98.9 F Pulse Rate 91 90 Respiratory 18 14 16 Rate Blood Pressure 148/77 (mmHg) O2 Sat by Pulse 98 98 98 Oximetry Oxygen Devices in Use Now: None Appearance: 63 yo M in nAD, AAOx3 Eyes: No Scleral Icterus, PERRLA Ears/Nose/Mouth/Throat: NL Teeth, Lips, Gums, Mucous Membranes Moist Neck: NL Appearance and Movements; NL JVP, Trachea Midline Respiratory: Symmetrical Chest Expansion and Respiratory Effort, Clear to Auscultation Cardiovascular: NL Sounds; No Murmurs; No JVD, RRR Abdominal: NL Sounds; No Tenderness; No Distention Lymphatic: No Cervical Adenopathy Extremities: No Edema, No Clubbing, Cyanosis Skin: No Rash or Ulcers, No Nodules or Sclerosis Neurological: Alert and Oriented x 3, NL Muscle Strength and Tone Result Diagrams: 06/17/18 09:25 06/17/18 09:25 Additional Lab and Data: Lab Results 06/17/18 06/17/18 06/17/18 Range/Units 09:25 09:25 09:25 WBC 13.3 H (3.5-10.8) 10^3/ul RBC 4.70 (4.00-5.40) 10^6/ul Hgb 13.7 L (14.0-18.0) g/dl Hct 42 (42-52) % MCV 89 (80-94) fL MCH 29 (27-31) pg MCHC 33 (31-36) g/dl RDW 15 (10.5-15) % Plt Count 326 (150-450) 10^3/ul MPV 9.4 (7.4-10.4) fL Neut % (Auto) 78.8 % Lymph % (Auto) 10.9 % Collin % (Auto) 6.1 % Eos % (Auto) 3.2 % Baso % (Auto) 1.0 % Absolute Neuts (auto) 10.5 H (1.5-7.7) 10^3/ul Absolute Lymphs (auto) 1.4 (1.0-4.8) 10^3/ul Absolute Monos (auto) 0.8 (0-0.8) 10^3/ul Absolute Eos (auto) 0.4 (0-0.6) 10^3/ul Absolute Basos (auto) 0.1 (0-0.2) 10^3/ul Absolute Nucleated RBC 0 10^3/ul Nucleated RBC % 0 INR (Anticoag Therapy) 0.90 (0.77-1.02) APTT 25.6 L (26.0-36.3) seconds D-Dimer, Quantitative 349 H (Less Than 230) ng/mL Sodium 133 L (135-145) mmol/L Potassium 4.5 (3.5-5.0) mmol/L Chloride 100 L (101-111) mmol/L Carbon Dioxide 25 (22-32) mmol/L Anion Gap 8 (2-11) mmol/L BUN 22 (6-24) mg/dL Creatinine 1.22 H (0.67-1.17) mg/dL Est GFR ( Amer) 73.1 (>60) Est GFR (Non-Af Amer) 60.4 (>60) BUN/Creatinine Ratio 18.0 (8-20) Glucose 533 H* (70-100) mg/dL Lactic Acid (0.5-2.0) mmol/L Calcium 9.3 (8.6-10.3) mg/dL Total Bilirubin 0.30 (0.2-1.0) mg/dL AST 11 L (13-39) U/L ALT 12 (7-52) U/L Alkaline Phosphatase 111 H (34-104) U/L Troponin I 0.01 (<0.04) ng/mL B-Natriuretic Peptide (<=100) pg/mL Total Protein 7.4 (6.4-8.9) g/dL Albumin 3.9 (3.2-5.2) g/dL Globulin 3.5 (2-4) g/dL Albumin/Globulin Ratio 1.1 (1-3) Urine Color Urine Appearance Urine pH (5-9) Ur Specific Minerva (1.010-1.030) Urine Protein (Negative) Urine Ketones (Negative) Urine Blood (Negative) Urine Nitrate (Negative) Urine Bilirubin (Negative) Urine Urobilinogen (Negative) Ur Leukocyte Esterase (Negative) Urine Glucose (Negative) Influenza A (Rapid) (Negative) Influenza B (Rapid) (Negative) 06/17/18 06/17/18 06/17/18 Range/Units 09:25 09:25 09:33 WBC (3.5-10.8) 10^3/ul RBC (4.00-5.40) 10^6/ul Hgb (14.0-18.0) g/dl Hct (42-52) % MCV (80-94) fL MCH (27-31) pg MCHC (31-36) g/dl RDW (10.5-15) % Plt Count (150-450) 10^3/ul MPV (7.4-10.4) fL Neut % (Auto) % Lymph % (Auto) % Collin % (Auto) % Eos % (Auto) % Baso % (Auto) % Absolute Neuts (auto) (1.5-7.7) 10^3/ul Absolute Lymphs (auto) (1.0-4.8) 10^3/ul Absolute Monos (auto) (0-0.8) 10^3/ul Absolute Eos (auto) (0-0.6) 10^3/ul Absolute Basos (auto) (0-0.2) 10^3/ul Absolute Nucleated RBC 10^3/ul Nucleated RBC % INR (Anticoag Therapy) (0.77-1.02) APTT (26.0-36.3) seconds D-Dimer, Quantitative (Less Than 230) ng/mL Sodium (135-145) mmol/L Potassium (3.5-5.0) mmol/L Chloride (101-111) mmol/L Carbon Dioxide (22-32) mmol/L Anion Gap (2-11) mmol/L BUN (6-24) mg/dL Creatinine (0.67-1.17) mg/dL Est GFR ( Amer) (>60) Est GFR (Non-Af Amer) (>60) BUN/Creatinine Ratio (8-20) Glucose (70-100) mg/dL Lactic Acid 1.3 (0.5-2.0) mmol/L Calcium (8.6-10.3) mg/dL Total Bilirubin (0.2-1.0) mg/dL AST (13-39) U/L ALT (7-52) U/L Alkaline Phosphatase (34-104) U/L Troponin I (<0.04) ng/mL B-Natriuretic Peptide 11 (<=100) pg/mL Total Protein (6.4-8.9) g/dL Albumin (3.2-5.2) g/dL Globulin (2-4) g/dL Albumin/Globulin Ratio (1-3) Urine Color Straw Urine Appearance Clear Urine pH 6.0 (5-9) Ur Specific Minerva 1.021 (1.010-1.030) Urine Protein Negative (Negative) Urine Ketones Negative (Negative) Urine Blood Negative (Negative) Urine Nitrate Negative (Negative) Urine Bilirubin Negative (Negative) Urine Urobilinogen Negative (Negative) Ur Leukocyte Esterase Negative (Negative) Urine Glucose 3+(>=500 mg/dl) A (Negative) Influenza A (Rapid) (Negative) Influenza B (Rapid) (Negative) 06/17/18 Range/Units 09:46 WBC (3.5-10.8) 10^3/ul RBC (4.00-5.40) 10^6/ul Hgb (14.0-18.0) g/dl Hct (42-52) % MCV (80-94) fL MCH (27-31) pg MCHC (31-36) g/dl RDW (10.5-15) % Plt Count (150-450) 10^3/ul MPV (7.4-10.4) fL Neut % (Auto) % Lymph % (Auto) % Collin % (Auto) % Eos % (Auto) % Baso % (Auto) % Absolute Neuts (auto) (1.5-7.7) 10^3/ul Absolute Lymphs (auto) (1.0-4.8) 10^3/ul Absolute Monos (auto) (0-0.8) 10^3/ul Absolute Eos (auto) (0-0.6) 10^3/ul Absolute Basos (auto) (0-0.2) 10^3/ul Absolute Nucleated RBC 10^3/ul Nucleated RBC % INR (Anticoag Therapy) (0.77-1.02) APTT (26.0-36.3) seconds D-Dimer, Quantitative (Less Than 230) ng/mL Sodium (135-145) mmol/L Potassium (3.5-5.0) mmol/L Chloride (101-111) mmol/L Carbon Dioxide (22-32) mmol/L Anion Gap (2-11) mmol/L BUN (6-24) mg/dL Creatinine (0.67-1.17) mg/dL Est GFR ( Amer) (>60) Est GFR (Non-Af Amer) (>60) BUN/Creatinine Ratio (8-20) Glucose (70-100) mg/dL Lactic Acid (0.5-2.0) mmol/L Calcium (8.6-10.3) mg/dL Total Bilirubin (0.2-1.0) mg/dL AST (13-39) U/L ALT (7-52) U/L Alkaline Phosphatase (34-104) U/L Troponin I (<0.04) ng/mL B-Natriuretic Peptide (<=100) pg/mL Total Protein (6.4-8.9) g/dL Albumin (3.2-5.2) g/dL Globulin (2-4) g/dL Albumin/Globulin Ratio (1-3) Urine Color Urine Appearance Urine pH (5-9) Ur Specific Minerva (1.010-1.030) Urine Protein (Negative) Urine Ketones (Negative) Urine Blood (Negative) Urine Nitrate (Negative) Urine Bilirubin (Negative) Urine Urobilinogen (Negative) Ur Leukocyte Esterase (Negative) Urine Glucose (Negative) Influenza A (Rapid) Negative (Negative) Influenza B (Rapid) Negative (Negative) Microbiology and Other Data: Microbiology 06/17/18 09:33 Influenza Types A,B Antigen - Final Nasal Specimen received for Influenza A/B Molecular testing Assess/Plan/Problems-Billing Assessment: 63 yo M with h/o Asthma/COPD, DM2, had not been taking his meds x 1- 2 months due to financial reasons and presents with L lingula PNA and BG>500 - Patient Problems (1) Uncontrolled type 2 diabetes mellitus Comment: due to medical noncompliance and financial problems. SW consulted. BG on Glimepride down to 200's range cont ISS (2) Lingular pneumonia Comment: Sepsis due to PNA noted at admission cont Azithromycin/Ceftriaxone Left sided pleuritic CP related to PNA, no evidence of PE on CTA at admission (3) COPD (chronic obstructive pulmonary disease) Comment: no significant bronchospasm noted (4) DVT prophylaxis Comment: HSQ Status and Disposition: inpatient
[2018-06-18 09:34] LABS: ABS Basophils 0.1 10^3/ul (0-0.2); ABS Eosinophils 0.3 10^3/ul (0-0.6); ABS Lymphocytes 2.1 10^3/ul (1.0-4.8); ABS Monocytes 0.8 10^3/ul (0-0.8); ABS Neutrophils 8.5 10^3/ul (1.5-7.7); ABS Nucleated RBC 0 10^3/ul; Eosinophil % 2.9 %; Hematocrit 41 % (42-52); Hemoglobin 13.6 g/dl (14.0-18.0); Mean Corpuscular HGB Conc 33 g/dl (31-36); Mean Corpuscular Hemoglobin 30 pg (27-31); Mean Corpuscular Volume 89 fL (80-94); Mean Platelet Volume 9.4 fL (7.4-10.4); Nucleated Red Blood Cells % 0; Platelet Count 302 10^3/ul (150-450); Red Cell Distribution Width 14 % (10.5-15); White Blood Count 11.8 10^3/ul (3.5-10.8)
[2018-06-18 10:00] LABS: EGFR Non-African American 92.9 (>60)
[2018-06-18] MEDS: Acetaminophen TAB* 325 MG PO PRN ×2 (11:58→20:44)
[2018-06-18] MEDS ORDERED: cefTRIAXone(*) 1 GM in NS 0.9% 50 ML* 50 ML IVPB SCH (14:00)
[2018-06-18] MEDS ORDERED: Azithromycin IV(*) 500 MG in NS 0.9% 250 ML* 250 ML IVPB SCH (14:30)
[2018-06-19] MEDS: Heparin VIAL(*) 5000 UNITS/ML VIAL (FIVE THOUSAND) SUBCUT SCH (05:24)
[2018-06-19] MEDS: Mometasone/Formoter 200/5 MDI INH SCH (08:16)
[2018-06-19] MEDS: Acetaminophen TAB* 325 MG PO PRN (09:40)
[2018-06-19] MEDS: Insulin LISPRO* 1 UNITS UNIT SUBCUT SCH ×2 (09:40→13:36)
[2018-06-19] MEDS: Glimepiride (NF) 2 MG TAB PO SCH (09:41)
[2018-06-19] MEDS: Docusate CAP* 100 MG PO SCH (09:41)
[2018-06-19] MEDS: Aspirin 81 mg CHEW TAB* 81 MG TAB.CHEW PO SCH (09:41)
[2018-06-19 11:49] VITALS: BP 146/81
--- NOTE | 2018-06-19 13:32 | DS ---
CC: Sharon Montesinos NP * DISCHARGE SUMMARY: DATE OF ADMISSION: 06/17/18 DATE OF DISCHARGE: 06/19/18 PRIMARY CARE PROVIDER: Nurse practitioner, Sharon Montesinos, from [place]. DISCHARGE DIAGNOSES: 1. Sepsis due to pneumonia of the left lingula. 2. Uncontrolled diabetes, type 2. MEDICATIONS AT DISCHARGE: Include: 1. Glimepiride 4 mg p.o. b.i.d. 2. Keflex 500 mg 4 times a day for a total of 5 days, then stop. 3. Prilosec 40 mg daily. 4. Advair 1 inhalation b.i.d. 5. Aspirin 81 mg daily. 6. Albuterol inhaler on a p.r.n. basis. Please note that the patient has no prescription insurance at this point. He was prescribed cephalexin and glimepiride with the prescription to be sent to [facility] for the 4 dollar prescription plan. The remaining medications he may be able to get once he subscribes for his Medicare Pay Part D early on next year. He still has his albuterol inhaler that he is going to use as needed. LABORATORY DATA: On 06/18/18 showed white blood cell count of 11.8, hemoglobin of 13.6, hematocrit of 41, and platelets of 302,000. Sodium 135, potassium 3.6 , chloride 105, carbon dioxide 23, BUN 12, creatinine 0.84. Hemoglobin A1c was 14.0. The patient's sugar levels in the past 12 hours have been ranging between 131 to 229. IMAGING: CT angiogram of the chest obtained on 06/17/18, impression: "Limited study. Within the limitation of the study, there was no pulmonary arterial filling defect to suggest pulmonary embolism. Minimal airspace disease of the lingula. Fatty infiltration of the liver." HOSPITALIZATION COURSE: Iker Galaviz is a 63-year-old male with history of asthma/COPD as well as diabetes who basically had not been taking any of his medications apart from p.r.n. albuterol for the past couple of months due to financial issues. He came into the hospital complaining of shortness of breath , left-sided pain. He was diagnosed with sepsis due to left lung pneumonia. Also, his sugars were over 500 and his hemoglobin A1c was 14. He was admitted to the hospital, treated with IV antibiotics and did very well. Please note that the patient did not have any significant bronchospasm during the hospital stay and did not require steroids. He was placed back on his glimepiride. He used to take that 4 mg twice a day and his sugars were much better controlled by the time of his discharge. Due to his financial issues, social group worker is right now involved with the patient in regards to setting him up with Medicare Part D versus Medicaid. 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 He also was given refills for the glimepiride for the future. He is recommended to follow up with his primary care provider in 4 to 7 days. PHYSICAL EXAMINATION AT THE TIME OF DISCHARGE: Blood pressure of 138/78, heart rate of 76 and regular, respiratory rate 16, oxygen saturation 93% on room air, temperature 98.5. General: The patient is a very pleasant 63-year-old male who is in no acute distress. Alert, awake, oriented x3. HEENT: Head: Atraumatic, normocephalic. Eyes: Pupils are equal, reactive to light and accommodation. Oropharynx is clear. Mucosa moist. Neck: Supple. No JVD. No bruits bilaterally. Cardiovascular: Regular rate and rhythm. No murmur. Respiratory: Clear to auscultation bilaterally apart from scant left lung rhonchi at the base. Abdomen is soft, nontender. Bowel sounds are present in all 4 quadrants. Extremities: There is no edema. Pulses are +2 bilaterally. No clubbing or cyanosis. Neuro evaluation, nonfocal. Cranial nerves II through XII grossly intact. Motor strength is 5/5 bilaterally. Please note that this is a short summary of the patient's hospital stay. Please refer to further medical records for details. TIME SPENT: Approximately 40 minutes were spent on the patient's discharge. [id number]/[facility] #: [id number] [facility]PITAL[facility]ina
== END 2018-06-19 13:00 | disposition home or self-care (01) | DRG 871 ==
LOC: ED 08:53 → MED 12:51
PROVIDERS: ADMIT Internal Medicine; ATTEND Internal Medicine
DX: A41.9 Sepsis, unspecified organism (principal); J18.9 Pneumonia, unspecified organism; J44.0 Chronic obstructive pulmonary disease with (acute) lower respiratory infection; E11.9 Type 2 diabetes mellitus without complications; K21.9 Gastro-esophageal reflux disease without esophagitis; M19.90 Unspecified osteoarthritis, unspecified site; R40.2362 Coma scale, best motor response, obeys commands, at arrival to emergency department; G89.29 Other chronic pain; K76.0 Fatty (change of) liver, not elsewhere classified; M54.9 Dorsalgia, unspecified; R40.2142 Coma scale, eyes open, spontaneous, at arrival to emergency department; R40.2252 Coma scale, best verbal response, oriented, at arrival to emergency department; E11.65 Type 2 diabetes mellitus with hyperglycemia; Z86.14 Personal history of Methicillin resistant Staphylococcus aureus infection; Z88.0 Allergy status to penicillin; Z88.8 Allergy status to other drugs, medicaments and biological substances; Z87.891 Personal history of nicotine dependence; Z82.49 Family history of ischemic heart disease and other diseases of the circulatory system; Z72.89 Other problems related to lifestyle; Z23 Encounter for immunization; Z79.84 Long term (current) use of oral hypoglycemic drugs; Z79.82 Long term (current) use of aspirin; Z91.14 Patient's other noncompliance with medication regimen; Z83.3 Family history of diabetes mellitus
CPT/HCPCS: 36415; 71046; 71275; 80048; 80053; 81003; 82803; 83036; 83605; 83880; 84484; 85025; 85379; 85610; 85730; 87040; 90686; 93005; 94640; 99284; A9270-GY; J0456; J0696; J1644; Q9967